=== PATIENT | female | born 1950 | race Caucasian/White ===

== ENCOUNTER 2017-11-23 13:00 | Outpatient (RCR) | payer MEDICARE, OTHER, SELFPAY ==
--- NOTE | 2017-11-10 12:15 | HP.PTEVAL_ITS ---
Patient's Visit Information ROCIO JIMENEZ is a 67 year old F referred to Physical Therapy by Toma Quintana DO with a diagnosis of Right Shoulder Pain. Date of Evaluation: 11/10/17 Physical Therapist: Carol Ann Min - Visit Plan Frequency: 2x /Week Duration: 3 Weeks Plan: Focus on ROM and scap s/s - Subjective Subjective: Patient reports that in Sept initial injury went into [place] and felt a pop. Went chiropractor who manipulated and did stim/ice, laser and ultrasound which did not make it better. Then saw Dr. Butler- manipulated the shoulder 3 weeks ago and its the best she has been. Saw Dr. Quintana and was sent to PT. Describes pain as achy all the time but has sharp pain with abduction and catching. Has not been to yoga since July. Worst: 02/15 Best: 11/17. Agg: movement, lifting grand daughter. Best: Motrin, Enyzyme. Pain is along shoulder blade and wraps into the bicipital groove. No injections. 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 Sleep: disturbed- cant sleep on it. Very active person but wants to get back to her normal stuff. Work: retired- but cares for her grand daughter a lot. Right hand dominate. PMHx: HTN, high cholesterol, cleaned out carotid artery (2 years ago). Meds: HTN, cholestrol, lotrinex, premarin - Objective Posture: good throughout. Palpation: tender along upper trap, levator, SCM, scalenes, bicipital groove, supraspinatus, infraspinatus and along the medial border of the scapula. ROM: elbow/wrist/hand- WNL. AROM: flexion- 95 degrees, abd: 85 degrees, IR: to bra, ER: 50 degrees, PROM: flexion- 165 degrees, Abd: 170 degrees. Strength: Scap: fair minus winging scapula, Shoulder: 4/5 throughout available range, Elbow/Wrist/hand: WNL. Special Test: Empty Can: positive, Impingment: positive - Goals Goal 1:: Patient will be I with HEP and progression Goal Time Frame: 4-6 Weeks Goal 2:: Patient will demo full AROM of the shoulder Goal Time Frame: 4-6 Weeks Goal 3:: Patient will demo good scapular s/s Goal Time Frame: 4-6 Weeks Goal 4:: Patient will report 0/10 pain for 1 week Goal Time Frame: 4-6 Weeks - Rehabilitation Potential Physical Therapy Diagnosis: Patient presents with hypomobility- she has decreased ROM, strength and muscular endurance leading to poor posture and increased pain with ADL's. Rehabilitation Potential: Fair - Anticipated Interventions Patient/Client Instruction: Educate patient on: Benefits of Fitness Program For the Purpose of:: To improve performance and independence with ADL's Therapeutic Exercise to Include: Strength training, Endurance training, Body mechanics, Postural training, Passive ROM, Active ROM, Scapular Strength/ Stabilization For the Purpose of:: To improve muscle performance and motor function Manual Therapy Techniques to Include: Mobilization, Passive ROM, Functional dry needling, Soft tissue mobilization For the Purpose of:: To improve nutrient delivery to tissue TENS: Yes Cryotherapy (ice pack, ice massage): Yes Thermo therapy (hot pack): Yes Ultrasound (thermal/non thermal): Yes For the Purpose of:: To decrease pain Thank you for the opportunity to evaluate your patient. For Medicare and Medicare HMO plans, please review the plan of care and approve it. It will need to be FAXED BACK to us at [phone] for Medicare purposes. Please let me know if there are questions or concerns regarding this plan of care. Physician Signature: Date:
--- NOTE | 2018-02-14 10:37 | HP.PTDCNRP_ITS ---
HP - Discharge Summary (1) - Patient Information ROCIO JIMENEZ was seen in my office for initial evaluation on 11/10/17. The following Plan of Care was established for this patient: Initial Frequency: 2x /Week Initial Duration: 3 Weeks - Anticipated Interventions Patient/Client Instruction: Educate patient on: Benefits of Fitness Program For the Purpose of:: To improve performance and independence with ADL's Therapeutic Exercise to Include: Strength training, Endurance training, Body mechanics, Postural training, Passive ROM, Active ROM, Scapular Strength/ Stabilization For the Purpose of:: To improve muscle performance and motor function Manual Therapy Techniques to Include: Mobilization, Passive ROM, Functional dry needling, Soft tissue mobilization For the Purpose of:: To improve nutrient delivery to tissue TENS: Yes Cryotherapy (ice pack, ice massage): Yes Thermo therapy (hot pack): Yes Ultrasound (thermal/non thermal): Yes For the Purpose of:: To decrease pain This patient was last seen in our office . Pertinent comments regarding their Physical therapy will appear below: Patient has returned to normal activities and is appropriate to be d/c at this time. At this point I will be discontinuing this patient from physical therapy. I would be happy to see this patient again in the future if found appropriate by the physician. Thank you! Carol Ann Min
== END 2017-11-23 19:00 | disposition home or self-care (01) ==
LOC: PT 13:00
PROVIDERS: Family Provider Internal Medicine; PCP Internal Medicine; Visit Provider Internal Medicine
DX: M25.511 Pain in right shoulder (principal)
CPT/HCPCS: 97110; 97161

== ENCOUNTER → 2018-03-16 09:11 | Outpatient (CLI) | payer MEDICARE, OTHER, SELFPAY ==
--- NOTE | 2018-03-16 09:16 | US_ITS ---
STUDY: ABDOMINAL ULTRASOUND -left UPPER QUADRANT REASON FOR VISIT: Female, 67 years old. Elevated platelets TECHNIQUE: Ultrasound evaluation of the right upper quadrant was performed with real-time and static hardwick-scale imaging. TECHNICAL QUALITY: Adequate. COMPARISON: None. FINDINGS: Spleen: The spleen measures 8.5 cm x 3.5 cm x 3.1 cm. It is unremarkable. Left Kidney: Normal size of the left kidney. The left kidney measures 8.9 cm x 4.2 cm by 5.2 cm. Normal renal cortex. The left cortex measures 1.4 cm. There is no demonstrated renal mass or cyst. There is no left hydronephrosis. US/Spleen IMPRESSION: Normal left upper quadrant ultrasound examination. Electronically Signed: Bruce Contreras MD at 15:47 EDT Tel [phone], Service support ,
--- NOTE | 2018-03-16 09:48 | CDU_ITS ---
Reason For Study: Carotid stenosis - RT CEA Rt. Velocities/BP Lt. Velocities/BP Prox CCA 69.8/18.2 cm/sec. Prox CCA 81.5/25.2 cm/sec. Mid CCA 78.6/22.9 cm/sec. Mid CCA 89.7/27.0 cm/sec. Dist CCA 63.3/20.5 cm/sec. Dist CCA 59.8/21.1 cm/sec. Prox ICA 80.3/26.4 cm/sec. Prox ICA 62.1/21.1 cm/sec. Mid ICA 90.9/34.6 cm/sec. Mid ICA 86.2/32.8 cm/sec. Dist ICA 104.0/36.9 cm/sec. Dist ICA 79.5/28.1 cm/sec. Rt. ICA/CCA = 1.3. Lt. ICA/CCA = .96. Prox ECA 118.0/18.2 cm/sec. Prox ECA 47.5/10.6 cm/sec. Rt. Vert. 46.9/15.2 cm/sec. Lt. Vert. 50.4/16.4 cm/sec. Right Extracranial There is intimal thickening but no significant atherosclerotic plaque noted in the right common carotid artery. There is heterogeneous, smooth atherosclerotic plaque noted in the right internal carotid artery. There is intimal thickening but no significant atherosclerotic plaque noted in the right external carotid artery. Antegrade flow is noted in the right vertebral artery. Left Extracranial There is intimal thickening but no significant atherosclerotic plaque noted in the left common carotid artery. There is heterogeneous, irregular atherosclerotic plaque noted in the left internal carotid artery. There is homogeneous, smooth atherosclerotic plaque noted in the left external carotid artery. Antegrade flow is noted in the left vertebral artery. Procedure Carotid Duplex [id number]. Exam performed in department. Interpretation Summary Mild (<50%) stenosis right extracranial internal carotid. Mild (<50%) stenosis left extracranial internal carotid. Flow within the vertebral arteries is antegrade bilaterally. Ordering Physician: Toma Quintana Referring Physician: Toma Quintana Performed By: Idania Murdock RVT
== END ==
PROVIDERS: Family Provider Internal Medicine; PCP Internal Medicine; Visit Provider Internal Medicine
DX: R79.89 Other specified abnormal findings of blood chemistry (principal); I65.23 Occlusion and stenosis of bilateral carotid arteries
CPT/HCPCS: 76705; 93880

== ENCOUNTER → 2018-09-22 13:00 | Outpatient (CLI) | payer SELFPAY ==
--- NOTE | 2018-09-22 13:06 | CT_ITS ---
STUDY: CT CHEST WITHOUT CONTRAST REASON FOR EXAM: Female, 68 years old. High cholesterol RADIATION DOSAGE (If Supplied By Facility): CTDIvol = ( 12.19 ) mGy, DLP = ( 268.17 ) mGycm TECHNIQUE: Transaxial imaging was performed without the administration of intravenous contrast material. Individualized dose optimization techniques were used for this CT. COMPARISON: None. FINDINGS: TRACHEA, THYROID, ESOPHAGUS: No tracheomalacia,stricture or wall thickening. Thyroid and esophagus are normal CARDIOVASCULAR SYSTEM: The thoracic aorta is grossly within normal limits. The pulmonary trunk and the left pulmonary arteries are also grossly within normal limits. The heart is not enlarged. Mild pericardial thickening. No coronary artery calcifications There are no vascular developmental anomalies. ALBERTO AND LYMPH NODES: No hilar masses and no mediastinal, hilar, axillary or supraclavicular adenopathy LUNGS, LOW-ATTENUATION: No traction bronchiectasis, honeycombing,emphysema, lung cysts or cavitations LUNGS, HIGH ATTENUATION: No nodules/masses, ground glass opacities/consolidations or increased interstitial markings LUNGS, MOSAIC/CRAZY PAVING: Not evident PLEURA AND CHEST WALL: No plural effusions, pneumothoraces,rib fractures or any osteolytic/osteoblastic changes . The soft tissue chest wall including the breasts are normal UPPER ABDOMEN: Unremarkable CT/Limited Chest CT w/CCTA IMPRESSION: Mild pericardial thickening. No coronary artery calcification. No acute findings in the lungs Electronically Signed: David Horton MD at 3:04 EST Tel , Service support ,
[2018-09-22 13:29] VITALS: BP 137/60; PULSE 59; RESP 14; O2SAT 99; BMI 21.6
--- NOTE | 2018-09-23 08:16 | CA.SCORE ---
Calcium Scoring Date of Study:: 09/22/18 Coronary Calcium Scoring: Coronary calcium scoring. High-resolution computed tomographic imaging of the chest was performed on 09/22/2018 with particular attention paid to the coronary arteries. Images from the examination were analyzed for the presence and extent of coronary artery calcification using the coronary calcification quantification software. The patient tolerated the procedure well and there were no complications. The results of the coronary calcification analysis are noted as follows. Left main coronary artery score 0. Left anterior descending artery score 0. Left circumflex artery score 0. Right coronary artery score 0. Total calcium score is 0. The above is indicative of minimal to no significant atherosclerotic cardiovascular disease.
== END ==
PROVIDERS: Family Provider Internal Medicine; PCP Internal Medicine; Referring Provider Internal Medicine; Visit Provider Internal Medicine
DX: I65.29 Occlusion and stenosis of unspecified carotid artery (principal); E78.5 Hyperlipidemia, unspecified
CPT/HCPCS: 75571; 76380

== ENCOUNTER → 2018-12-22 12:49 | Outpatient (CLI) | payer MEDICARE, OTHER, SELFPAY ==
[2018-09-22 13:29] VITALS: BMI 21.6
--- NOTE | 2018-12-22 12:52 | ECHOD_ITS ---
Reason For Study: Pericardial Disease Procedure This was a 2D Doppler, Color Flow transthoracic echocardiogram. Exam performed in department. Left Ventricle Normal LV size. Left ventricular systolic function is normal. The estimated ejection fraction is 60 %. Stage 1 diastolic dysfunction. No regional wall motion abnormalities noted. Right Ventricle Normal RV size. Normal systolic function. Atria Normal left atrium. Normal right atrium. Mitral Valve Normal mitral valve. Mild (1+) eccentric mitral valve insufficiency. Tricuspid Valve Normal tricuspid valve. Mild tricuspid valve insufficiency. Aortic Valve Trisinus/trileaflet aortic valve. Pulmonic Valve Normal pulmonic valve. Great Vessels Normal aortic root. The pulmonary artery is normal size. Normal inferior vena cava. Pericardium/Pleural No pericardial effusion. MMode/2D Measurements & Calculations LVIDd: 4.1 cm IVSd: 0.79 cm Ao root diam: 3.4 cm LVIDs: 2.3 cm LVPWd: 0.76 cm LA dimension: 2.9 cm RVDd: 3.2 cm FS: 44.9 % LAV(MOD-bp): 37.2 ml LA A4 area: 14.4 cm2 RA A4 area: 14.2 cm2 LAV(MOD-bp) Indexed: 22.6 ml/m2 LAV(MOD-sp2): 40.4 ml LAV(MOD-sp4): 32.0 ml Time Measurements MV dec time: 0.26 sec Doppler Measurements & Calculations MV E max osvaldo: 93.3 cm/sec Lat Peak E' Osvaldo: 8.8 cm/sec Med Peak E' Osvaldo: 10.1 cm/sec MV A max osvaldo: 80.3 cm/sec E/E' lat: 10.6 E/E' med: 9.2 MV E/A: 1.2 MV V2 max: 128.1 cm/sec MV P1/2t max osvaldo: 128.8 cm/sec Ao V2 max: 142.5 cm/sec MV max P.6 mmHg MV P1/2t: 68.3 msec Ao max P.1 mmHg MV V2 mean: 68.5 cm/sec MV dec slope: 552.4 cm/sec2 MV mean P.2 mmHg MVA(P1/2t): 3.2 cm2 MV V2 VTI: 33.3 cm LV V1 max: 118.6 cm/sec MR max osvaldo: 542.8 cm/sec PA V2 max: 108.7 cm/sec LV V1 max P.6 mmHg MR max P.8 mmHg MR mean osvaldo: 391.0 cm/sec MR mean P.4 mmHg MR VTI: 202.4 cm TR max osvaldo: 241.3 cm/sec TR max P.4 mmHg Interpretation Summary Normal LV size. Left ventricular systolic function is normal. The estimated ejection fraction is 60 %. Stage 1 diastolic dysfunction. Mild (1+) eccentric mitral valve insufficiency. Mild tricuspid valve insufficiency. Ordering Physician: Toma Quintana Referring Physician: Toma Quintana Performed By: Mykel Rivera RCS
== END ==
PROVIDERS: Family Provider Internal Medicine; PCP Internal Medicine; Referring Provider Internal Medicine; Visit Provider Internal Medicine
DX: I34.1 Nonrheumatic mitral (valve) prolapse (principal); I31.9 Disease of pericardium, unspecified; Z12.31 Encounter for screening mammogram for malignant neoplasm of breast
CPT/HCPCS: 93306

== ENCOUNTER → 2019-01-20 07:31 | Outpatient (CLI) | payer MEDICARE, OTHER, SELFPAY ==
[2018-09-22 13:29] VITALS: BMI 21.6
--- NOTE | 2019-01-20 06:50 | BI_ITS ---
MAMMOGRAPHY - BILATERAL SCREENING REASON FOR EXAM: Female, 68 years old. Routine annual screening examination. PERTINENT HISTORY: Non-contributory. TECHNIQUE: Digital bilateral breast carina (3D mammographic acquisition) in the CC and MLO projections. 2-D mediolateral oblique (MLO) and craniocaudad (CC) views of both breasts were obtained. CAD: Full Field Digital Mammography with Computer Added Detection was performed. COMPARISON: Comparison is made with prior study dated November 18, 2017 and October 07, 2016. FINDINGS: Breast Composition: The breasts are extremely dense, which lowers the sensitivity of mammography. There are no dominant masses or suspicious calcifications. No other significant abnormalities are identified. There has been no significant change since the prior study. BI/SCREENING MAMM (CAD), BILAT IMPRESSION: Stable bilateral screening mammogram. Yearly follow-up mammogram recommended. (A) ASSESSMENT CATEGORY: BIRADS Category 1: Negative. A letter regarding these results will be sent to the patient by the facility within 30 days. Approximately 10% of breast cancers are not detected by mammography. A normal mammogram should not delay biopsy of a clinically suspicious abnormality. [id number] Electronically Signed: Bruce Contreras, at 9:23 EDT , Service support ,
== END ==
PROVIDERS: Family Provider Internal Medicine; PCP Internal Medicine; Referring Provider Internal Medicine; Visit Provider Internal Medicine
DX: Z12.31 Encounter for screening mammogram for malignant neoplasm of breast (principal)
CPT/HCPCS: 77063; 77067

== ENCOUNTER → 2019-03-06 09:46 | Outpatient (CLI) | payer MEDICARE, OTHER, SELFPAY ==
[2018-09-22 13:29] VITALS: BMI 21.6
--- NOTE | 2019-03-06 10:41 | CDU_ITS ---
Reason For Study: carotid stenosis Rt. Velocities/BP Lt. Velocities/BP Prox CCA 68.2/16.0 cm/sec. Prox CCA 69.5/20.0 cm/sec. Mid CCA 69.5/21.3 cm/sec. Mid CCA 70.8/20.0 cm/sec. Dist CCA 60.4/18.6 cm/sec. Dist CCA 56.5/18.6 cm/sec. Prox ICA 81.2/6.9 cm/sec. Prox ICA 59.1/17.3 cm/sec. Mid ICA 87.8/34.3 cm/sec. Mid ICA 87.8/31.7 cm/sec. Dist ICA 100.8/35.6 cm/sec. Dist ICA 96.9/35.6 cm/sec. Rt. ICA/CCA = 1.5. Lt. ICA/CCA = 1.4. Prox ECA 81.2/12.1 cm/sec. Prox ECA 38.2/8.2 cm/sec. Rt. Vert. 39.5/13.4 cm/sec. Lt. Vert. 46.0/17.3 cm/sec. Right Extracranial There is intimal thickening but no significant atherosclerotic plaque noted in the right common carotid artery. There is heterogeneous, irregular atherosclerotic plaque noted in the right internal carotid artery. There is intimal thickening but no significant atherosclerotic plaque noted in the right external carotid artery. Antegrade flow is noted in the right vertebral artery. Left Extracranial There is intimal thickening but no significant atherosclerotic plaque noted in the left common carotid artery. There is heterogeneous, irregular atherosclerotic plaque noted in the left internal carotid artery. There is intimal thickening but no significant atherosclerotic plaque noted in the left external carotid artery. Antegrade flow is noted in the left vertebral artery. Procedure Carotid Duplex [id number]. The exam was diagnostic. Exam performed in department. Interpretation Summary Mild (<50%) stenosis right extracranial internal carotid. Mild (<50%) stenosis left extracranial internal carotid. Flow within the vertebral arteries is antegrade bilaterally. Ordering Physician: Toma Quintana Performed By: Emiliano Sheikh RVT
== END ==
PROVIDERS: Family Provider Internal Medicine; PCP Internal Medicine; Referring Provider Internal Medicine; Visit Provider Internal Medicine
DX: I65.23 Occlusion and stenosis of bilateral carotid arteries (principal)
CPT/HCPCS: 93880

== ENCOUNTER → 2020-03-07 10:51 | Outpatient (CLI) | payer MEDICARE, OTHER, SELFPAY ==
[2018-09-22 13:29] VITALS: BMI 21.6
--- NOTE | 2020-03-07 10:55 | CDU_ITS ---
Reason For Study: carotid stenosis Rt. Velocities/BP Lt. Velocities/BP Prox CCA 76.0/20.0 cm/sec. Prox CCA 89.3/25.6 cm/sec. Mid CCA 69.5/18.6 cm/sec. Mid CCA 75.0/20.1 cm/sec. Dist CCA 57.8/14.7 cm/sec. Dist CCA 58.5/16.8 cm/sec. Prox ICA 122.9/20.6 cm/sec. Prox ICA 48.5/10.7 cm/sec. Mid ICA 71.6/22.5 cm/sec. Mid ICA 65.5/23.9 cm/sec. Dist ICA 79.0/29.8 cm/sec. Dist ICA 113.3/39.7 cm/sec. Rt. ICA/CCA = 1.8. Lt. ICA/CCA = 1.5. Prox ECA 99.5/14.7 cm/sec. Prox ECA 47.5/10.7 cm/sec. Rt. Vert. 39.9/12.4 cm/sec. Lt. Vert. 55.6/18.8 cm/sec. Right Extracranial There is intimal thickening but no significant atherosclerotic plaque noted in the right common carotid artery. There is heterogeneous, irregular atherosclerotic plaque noted in the right internal carotid artery. There is intimal thickening but no significant atherosclerotic plaque noted in the right external carotid artery. Antegrade flow is noted in the right vertebral artery. Left Extracranial There is intimal thickening but no significant atherosclerotic plaque noted in the left common carotid artery. There is heterogeneous, irregular atherosclerotic plaque noted in the left internal carotid artery. There is intimal thickening but no significant atherosclerotic plaque noted in the left external carotid artery. Antegrade flow is noted in the left vertebral artery. Procedure Carotid Duplex [id number]. The exam was diagnostic. Exam performed in department. Interpretation Summary Mild (<50%) stenosis right extracranial internal carotid. Mild (<50%) stenosis left extracranial internal carotid. Flow within the vertebral arteries is antegrade bilaterally. Ordering Physician: Toma Quintana Performed By: Emiliano Sheikh RVT
== END ==
PROVIDERS: PCP Internal Medicine; Referring Provider Internal Medicine; Visit Provider Internal Medicine
DX: I65.23 Occlusion and stenosis of bilateral carotid arteries (principal)
CPT/HCPCS: 93880

== ENCOUNTER → 2020-03-28 12:25 | Outpatient (CLI) | payer MEDICARE, OTHER, SELFPAY ==
[2018-09-22 13:29] VITALS: BMI 21.6
--- NOTE | 2020-03-28 12:28 | BI_ITS ---
MAMMOGRAPHY - BILATERAL SCREENING REASON FOR EXAM: Female, 69 years old. Routine annual screening examination. PERTINENT HISTORY: Non-contributory. TECHNIQUE: Digital bilateral breast red (3D mammographic acquisition) in the CC and MLO projections. 2-D mediolateral oblique (MLO) and craniocaudad (CC) views of both breasts were obtained. CAD: Full Field Digital Mammography with Computer Added Detection was performed. COMPARISON: Comparison is made with prior study dated January 20, 2019 and November 18, 2017. FINDINGS: Breast Composition: The breasts are extremely dense, which lowers the sensitivity of mammography. There are no dominant masses or suspicious calcifications. No other significant abnormalities are identified. There has been no significant change since the prior study. BI/SCREEN MAMM (CAD) W/RED BILAT IMPRESSION: Stable bilateral screening mammogram. Yearly follow-up mammogram recommended. (A) ASSESSMENT CATEGORY: BIRADS Category 1: Negative. A letter regarding these results will be sent to the patient by the facility within 30 days. Approximately 10% of breast cancers are not detected by mammography. A normal mammogram should not delay biopsy of a clinically suspicious abnormality. [id number] Electronically Signed: Bruce Contreras, at 10:39 EDT , Service support ,
--- NOTE | 2020-03-28 12:29 | BD_ITS ---
STUDY: DUAL ENERGY X-RAY ABSORPTIOMETRY / DXA REASON FOR EXAM: Female, 69 years old. RET[employer]- SURGICAL AT 49 YRS OLD -- ON HRT -- TAKES MULTIVITMAIN -- DOES MODERATE AMOUNT OF EXERCISE -- NO GERARDO TECHNIQUE: Bone Mineral Density (BMD) measurements of lumbar spine and bilateral hips were obtained. COMPARISON: Comparison is made with prior examination dated November 18, 2017. FINDINGS: Lumbar Spine (L1-L4): g/cm2 (1.242) / T-score (0.6) / Z-score (2.3) Findings are suggestive of normal bone density with a low fracture risk. Left Femur Total: g/cm2 (0.878) / T-score (-1.0) / Z-score (0.4) Left Femoral Neck: g/cm2 (0.843) / T-score (-1.4) / Z-score (0.2) Right Femur Total: g/cm2 (0.890) / T-score (-0.9) / Z-score (0.5) Right Femoral Neck: g/cm2 (0.852) / T-score (-1.3) / Z-score (0.3) The T-Scores on the most recent prior examination were: Lumbar Spine (L1-L4): There has been improvement of bone density since the previous examination. Left Femur Total: which represents a worsening of 1.2%. Right Femur Total: which represents a worsening of 0.3%. BD/Dexa Bone Density Study IMPRESSION: The patient is considered osteopenic as outlined below according to World Silv[employer] Organization (WHO) criteria with a low fracture risk. There has been worsening of bone density since the previous examination. Reference Information: The T-score is the number of standard deviations above or below the standard which is normal for young adults at their peak bone mineral density. The World Health Organization (WHO) interprets the T-scores as follows: Above -1 Normal bone density Between -1 and -2.5 Osteopenia Equal to / or below -2.5 Osteoporosis As a practical clinical guideline, osteopenia may be graded as follows: Mild -1 through -1.5 Moderate -1.6 through -2.0 Severe -2.1 through -2.4 The Z-score is the number of standard deviations above or below age-matched controls. A Z-score of less than -1.5 would be considered abnormal. References: 1. NIH Osteoporosis and Related Bone Diseases http://www.osteo.org 2. International Society for Clinical Densitometry http://www.iscd.org 3. National Osteoporosis Foundation http://www.nof.org Electronically Signed: Bruce Contreras, at 10:46 EDT , Service support ,
== END ==
PROVIDERS: Family Provider Internal Medicine; PCP Internal Medicine; Referring Provider Internal Medicine; Visit Provider Internal Medicine
DX: Z12.31 Encounter for screening mammogram for malignant neoplasm of breast (principal); Z78.0 Asymptomatic menopausal state
CPT/HCPCS: 77063; 77067; 77080

== ENCOUNTER → 2020-10-18 16:44 | Outpatient (CLI) | payer MEDICARE, OTHER, SELFPAY ==
[2018-09-22 13:29] VITALS: BMI 21.6
[2020-10-18 17:38] LABS: Absolute Lymphocyte Count 1.06 X10^3/uL (0.83-4.51); Absolute Neutrophil Count 2.2 X10^3/uL (2.0-7.7); Basophil# 0.01 X10^3/uL; Basophil% 0.3 % (0-1); Eosinophil# 0.03 X10^3/uL; Eosinophils% 0.8 % (0-5); Hematocrit 43.8 % (37-47); Hemoglobin 14.4 g/dL (12.0-15.0); Lymphocyte # 1.06 X10^3/ul (4.0); Mean Corp Hgb Conc 32.9 g/dL (32-36); Mean Corpuscular Hgb 31.4 pg (27.0-32.0); Mean Corpuscular Volume 95.4 fL (81-99); Monocyte# 0.61 X10^3/uL; Monocyte% 15.6 % (0-10); NRBC Flagged by Analyzer 0 % (0-5); Neutrophil # 2.21 X10^3/uL (2.7-7.7); Neutrophil % 56.3 % (47-70); Platelet Count 361 K/mm3 (150-450); RBC Distribution Width CV 13.2 % (11.6-14.6); RBC Distribution Width SD 46.5 fl (35.1-43.9); Red Blood Count 4.59 M/mm3 (4.2-5.4); White Blood Count 3.9 K/mm3 (4.4-11.0)
--- NOTE | 2020-10-18 17:39 | RAD_ITS ---
STUDY: X-RAY CHEST REASON FOR EXAM: Female, 70 years old. COUGH TECHNIQUE: PA and lateral COMPARISON: 03/09/2014 FINDINGS: Lungs are mildly hyperinflated but clear. There is minor pleural thickening in the pulmonary apices.. No pleural effusion or pneumothorax.. Normal size heart. Normal mediastinum and candy. Normal visualized pulmonary arteries. Normal visualized aortic arch and descending thoracic aorta. Normal visualized thoracic spine. Normal visualized ribs, clavicles, and shoulders. There is no demonstrated abnormality of the visualized soft tissue structures of the upper abdomen. RAD/Chest PA and Lateral IMPRESSION: Mild hyperinflation. No acute disease. Electronically Signed: Iraj Jimenez MD at 18:37 EST , Service support ,
[2020-10-18 18:08] LABS: ALB/GLOB Ratio 1.1 RATIO (0.9-2.4); AST(SGOT) 29 U/L (15-37); Alanine Aminotransfer ALT/SGPT 30 U/L (13-56); Albumin, Serum 3.9 g/dL (3.2-5.0); Alkaline Phosphatase 76 U/L (45-117); Anion Gap 6 (5-15); BUN 11 mg/dL (7-18); BUN/Creat Ratio 14.8 RATIO (10-20); Calcium,Total 9.1 mg/dL (8.5-10.1); Chloride 102 mmol/L (98-107); Creatinine, Serum 0.74 mg/dL (0.55-1.02); EST Glomerular Filtration Rate 82 mL/min (>60); Est Glom Filt Rate - Afr Amer 99 mL/min (>60); Globulin 3.6 g/dL (2.2-4.2); Glucose 92 mg/dL (74-106); Potassium 3.8 mmol/L (3.5-5.1); Protein, Total 7.5 g/dL (6.4-8.2); Sodium Level 136 mmol/L (136-145)
[2020-10-18 18:12] LABS: D-Dimer Quantitative (DVT/PE) 0.59 FEU/ug/m (0.27-0.49)
== END ==
PROVIDERS: PCP Internal Medicine; Visit Provider Internal Medicine
DX: R07.9 Chest pain, unspecified (principal); M54.5 Low back pain
CPT/HCPCS: 36415; 71046; 80053; 84484; 85025; 85379; 87086

== ENCOUNTER 2020-11-18 11:37 | Emergency (ER) | payer MEDICARE, OTHER, SELFPAY ==
[2018-09-22 13:29] VITALS: BMI 21.6
[2020-11-18 11:38] VITALS: BP 97/81; PULSE 87; RESP 17; TEMP 36.2; O2SAT 98; BMI 20.7
--- NOTE | 2020-11-18 12:03 | MRI_ITS ---
STUDY: MRI THORACIC SPINE WITH AND WITHOUT CONTRAST REASON FOR EXAM: Female, 70 years old. MID BACK PAIN -- pain across mid thoracic x 5 days, hx covid 10/2020, tingling all extremities TECHNIQUE: dotarem 11ml iv was administered for the contrast portion of the examination. COMPARISON: Radiograph thoracic spine 11/15/2020 FINDINGS: Normal kyphosis of the thoracic spine. There is no substantial scoliosis. T1-2, T2-3, T3-4, T4-5, T5-6, T6-7, T7-8, T8-9, T9-10, T10-11, T11-12: Normal endplates. Normal disc hydration, heights and morphology of the corresponding intervertebral discs. Normal central canal and intervertebral neural foramina at the corresponding levels. Normal visualized thoracic cord. Normal conus medullaris that terminates at the L1 level. The soft tissue structures are unremarkable. There is no enhancing abnormality. MRI/Spine Thoracic W/WO Contrast IMPRESSION: Normal unenhanced and enhanced MRI examination of the thoracic spine. Electronically Signed: García Restrepo MD at 20:56 EST , Service support ,
--- NOTE | 2020-11-18 12:03 | MRI_ITS ---
STUDY: MRI CERVICAL SPINE WITH AND WITHOUT CONTRAST REASON FOR EXAM: Female, 70 years old. MID BACK PAIN -- pain across mid thoracic x 5 days, hx covid 10/2020, tingling all extremities TECHNIQUE: Standardized fat and water weighted pulse sequences were obtained in the sagittal and axial following administration of dotarem 11 ml iv. COMPARISON: None FINDINGS: Normal foramen magnum and brainstem-cervical cord junction. Normal craniovertebral junction. Normal anterior atlantoaxial articulation. Normal odontoid process. Normal cervical lordosis. Normal vertebral bodies and posterior osseous elements. C2-3: Normal endplates. Normal disc height, signal and morphology. Normal central canal and intervertebral neural foramina. C3-4: Normal endplates. Normal disc height, signal and morphology. Normal central canal and intervertebral neural foramina. C4-5: Normal endplates. Normal disc height, signal and morphology. Normal central canal and intervertebral neural foramina. C5-6: Normal endplates. Normal disc height, signal and morphology. Normal central canal and intervertebral neural foramina. C6-7: Normal endplates. Normal disc height, signal and morphology. Normal central canal and intervertebral neural foramina. C7-T1: Normal endplates. Normal disc height, signal and morphology. Normal central canal and intervertebral neural foramina. 8 mm nerve sleeve root cyst on the right at T1-T2. Normal cervical cord. Normal visualized soft tissue structures. MRI/Spine Cervical W/WO Contrast IMPRESSION: Normal unenhanced and enhanced MR examination of the cervical spine. Electronically Signed: García Restrepo MD at 21:01 EST , Service support ,
[2020-11-18 12:33] LABS: Erythrocyte Sedimentation Rate 9 mm/hr (0-30)
[2020-11-18 12:37] LABS: Absolute Lymphocyte Count 1.75 X10^3/uL (0.83-4.51); Absolute Neutrophil Count 2.9 X10^3/uL (2.0-7.7); Anion Gap 6 (5-15); BUN 9 mg/dL (7-18); Basophil# 0.01 X10^3/uL; Basophil% 0.2 % (0-1); CRP < 2.90 mg/L (0.0-3.0); Calcium,Total 9.5 mg/dL (8.5-10.1); Chloride 104 mmol/L (98-107); Creatinine, Serum 0.69 mg/dL (0.55-1.02); EST Glomerular Filtration Rate 89 mL/min (>60); Eosinophil# 0.05 X10^3/uL; Est Glom Filt Rate - Afr Amer 108 mL/min (>60); Estimated Creatinine Clearance 47.52 ml/min; Glucose 100 mg/dL (74-106); Hematocrit 41.5 % (37-47); Hemoglobin 14.3 g/dL (12.0-15.0); Lymphocyte # 1.75 X10^3/ul (4.0); Lymphocyte % 34.4 % (19-41); Mean Corp Hgb Conc 34.5 g/dL (32-36); Mean Corpuscular Hgb 32.1 pg (27.0-32.0); Mean Platelet Vol. 8.7 fl (6.2-12.0); Monocyte# 0.34 X10^3/uL; Monocyte% 6.7 % (0-10); NRBC Flagged by Analyzer 0 % (0-5); Neutrophil # 2.93 X10^3/uL (2.7-7.7); Neutrophil % 57.5 % (47-70); Platelet Count 409 K/mm3 (150-450); Potassium 4.2 mmol/L (3.5-5.1); RBC Distribution Width CV 12.9 % (11.6-14.6); RBC Distribution Width SD 43.4 fl (35.1-43.9); Red Blood Count 4.46 M/mm3 (4.2-5.4); Sodium Level 138 mmol/L (136-145); White Blood Count 5.1 K/mm3 (4.4-11.0)
[2020-11-18] MEDS: Ondansetron 4 MG/2 ML Vial IV ×2 (13:08→15:59)
[2020-11-18] MEDS: Morphine 4 MG/ML Syringe IV ×3 (13:08→18:00)
--- NOTE | 2020-11-18 13:35 | ED.VIS.BACK ---
History of Present Illness Narrative: Patient presenting per recommendation of primary care for back pain. Patient states that she had an atraumatic onset of back pain. Tender mid thoracic back, is a continuous type pain that she states feels as if someone sliced her back. Patient states that preceding this by about 2 or 3 days she noticed some tingling in her upper extremities bilaterally. Patient states that she noticed that while playing tennis, and then did not notice it but then had reemergence of those symptoms on Wednesday when she started to develop this back pain. Back pain has been increasing in severity, is worse with movement has not been alleviated by Vicodin. Patient also states that she has some tingling in her toes. She denies any weakness. She denies any bowel or bladder incontinence. Patient has been losing weight, but she attributes that to the fact that she recently recovered from coronavirus. She has not had any repeat fever episodes. Patient denies any recent history of injections, fevers, or IV drug abuse. Patient's primary care physician was concerned about the possibility of development of transverse myelitis versus other spine pathology and felt the patient required MRI imaging and sent the patient to the emergency department for further evaluation. <Kurt Coker - Last Filed: 11/18/20 16:04> <Enoc García - Last Filed: 11/18/20 21:21> Chief Complaint: Back Past Medical History Prior records reviewed: Yes Past Medical History: - - No Significant med hx Lives: With Family Smoking Status: Unknown if ever smoked Alcohol: None Drugs: None <Kurt Coker - Last Filed: 11/18/20 16:04> <Eonc García - Last Filed: 11/18/20 21:21> - Allergies and Home Meds Allergies/Adverse Reactions: Allergies No Known Allergies Allergy (Verified 11/18/20 11:37) Primary Care Physician: Toma Quintana DO [Primary Care Provider] - Review of Systems All systems negative except as indicated General: Denies: Chills, Fever, Sweats Eyes: Denies: Visual changes - bilaterally, Diplopia ENT: Denies: Rhinorrhea, Sore throat Cardiovascular: Denies: Chest pain, Palpitations Respiratory: Denies: Dyspnea, Cough, Dyspnea on exertion Gastrointestinal: Denies: Abdominal pain, Nausea, Vomiting, Diarrhea, Melena, Hematochezia Genitourinary: Denies: Dysuria, Hematuria, Frequency Musculoskeletal: Reports: Back pain Skin: Denies: Rash, Wounds Neurological: Reports: Parasthesia <Kurt Coker - Last Filed: 11/18/20 16:04> Physical Exam Vital Signs/Narrative: Vital Signs Temp Pulse Resp BP Pulse Ox 11/18/20 11:38 97.1 F L 87 17 97/81 H 98 Inital Vital Signs reviewed: Yes General: Well nourished, Well developed Head: Normocephalic, Atraumatic Eyes: Perrl, EOMI ENT: Moist mucous membranes, No rhinorrhea Neck: Supple, Nontender Cardiovascular: Regular rate, Regular rhythm, No murmurs Respiratory: No distress, CTA bilaterally, Chest nontender Abdomen: Soft, Nontender, Nondistended, Normal bowel sounds Back: Normal Inspection, Nontender Extremeties: Nontender, No edema Skin: Normal color, No rash Neuro: Alert, Oriented, Normal Strength, Normal Sensation, Normal DTR, Normal Gait, - - Patient complains of dysesthesia in the fingers and toes, has a completely normal motor and sensory exam normal reflexes of the upper and lower extremities, no objective numbness. Psychological: Normal affect <SheelaKurt - Last Filed: 11/18/20 16:04> Vital Signs/Narrative: Vital Signs Pulse Resp BP Pulse Ox 11/18/20 20:09 73 16 159/92 H 98 <Enoc García - Last Filed: 11/18/20 21:21> Diagnostic/Tx/Re-eval Laboratory Data 11/18/20 11/18/20 12:15 12:15 WBC 5.1 RBC 4.46 Hgb 14.3 Hct 41.5 MCV 93.0 MCH 32.1 H MCHC 34.5 RDW Std Deviation 43.4 RDW Coeff of Yong 12.9 Plt Count 409 MPV 8.7 Immature Gran % (Auto) 0.200 Neut % (Auto) 57.5 Lymph % (Auto) 34.4 [place] % (Auto) 6.7 Eos % (Auto) 1.0 Baso % (Auto) 0.2 Absolute Neuts (auto) 2.9 Absolute Lymphs (auto) 1.75 Nucleated RBC % 0 ESR 9 Sodium 138 Potassium 4.2 Chloride 104 Carbon Dioxide 28.0 Anion Gap 6 BUN 9 Creatinine 0.69 Estim Creat Clear Calc 47.52 Est GFR (MDRD) Af Amer 108 Est GFR (MDRD) Non-Af 89 BUN/Creatinine Ratio 13.0 Glucose 100 Calcium 9.5 C-React Prot Ext Range < 2.90 - Medical Decision Making Patient presented secondary to back pain and numbness. Patient has a normal neurologic exam, her paresthesias are more subjective than objective. CBC chemistry ESR and CRP were obtained were found to be unremarkable. MRI imaging of the patient's cervical and thoracic spine were ordered and are pending at this time. Patient will be signed out to the oncoming physician who will follow up on the patient's imaging after it is performed. <Kurt Coker - Last Filed: 11/18/20 16:04> X-Ray: - - X-ray of the chest reveals no wide mediastinum. Cardiac silhouette and size normal. Lung parenchyma normal. Osseous structures appear normal. The x-ray was interpreted by me. Impressions Cervical Spine MRI 11/18/20 12:03 IMPRESSION: Normal unenhanced and enhanced MR examination of the cervical spine. Electronically Signed: García Restrepo MD at 21:01 EST , Service support , Thoracic Spine MRI 11/18/20 12:03 IMPRESSION: Normal unenhanced and enhanced MRI examination of the thoracic spine. Electronically Signed: García Restrepo MD at 20:56 EST , Service support , Chest X-Ray 11/18/20 17:20 IMPRESSION: COPD Electronically Signed: García Restrepo MD at 17:55 EST , Service support , 11/18/20 12:03 Spine Cervical W/WO Contrast [MRI] Stat Spine Thoracic W/WO Contrast [MRI] Stat 11/18/20 17:20 Chest PA and Lateral [RAD] Stat Laboratory Results 11/18/20 11/18/20 12:15 12:15 WBC 5.1 RBC 4.46 Hgb 14.3 Hct 41.5 MCV 93.0 MCH 32.1 H MCHC 34.5 RDW Std Deviation 43.4 RDW Coeff of Yong 12.9 Plt Count 409 MPV 8.7 Immature Gran % (Auto) 0.200 Neut % (Auto) 57.5 Lymph % (Auto) 34.4 [place] % (Auto) 6.7 Eos % (Auto) 1.0 Baso % (Auto) 0.2 Absolute Neuts (auto) 2.9 Absolute Lymphs (auto) 1.75 Nucleated RBC % 0 ESR 9 Sodium 138 Potassium 4.2 Chloride 104 Carbon Dioxide 28.0 Anion Gap 6 BUN 9 Creatinine 0.69 Estim Creat Clear Calc 47.52 Est GFR (MDRD) Af Amer 108 Est GFR (MDRD) Non-Af 89 BUN/Creatinine Ratio 13.0 Glucose 100 Calcium 9.5 C-React Prot Ext Range < 2.90 Marais shows no abnormality. With normal ESR and C-reactive protein plan is to discharge to home. <Enoc García - Last Filed: 11/18/20 21:21> ED Disposition <Kurt Coker - Last Filed: 11/18/20 16:04> <Enoc García - Last Filed: 11/18/20 21:21> - Plan for ED Patient: Disposition: Home or Assisted Living Diagnosis: Back pain, Paresthesia Instructions: ED Back Pain (Acute or Chronic), ED Paraesthesias Prescriptions: Oxycodone HCl/Acetaminophen [Percocet 5/325] 1 tab PO Q6H PRN PRN 5 Days #20 tab PRN Reason: Pain Score 6-10 Prescription Printed Referrals: Toma Quintana DO [Primary Care Provider] - 1 Week if not improving
[2020-11-18 15:28] VITALS: BP 174/89; PULSE 74; RESP 18; O2SAT 100
--- NOTE | 2020-11-18 17:20 | RAD_ITS ---
STUDY: X-RAY CHEST REASON FOR EXAM: Female, 70 years old. thoracic back pain TECHNIQUE: Frontal and lateral views of the chest. COMPARISON: 10/18/2020 FINDINGS: The lungs are hyper aerated. The lungs are clear and expanded. There is no demonstrated pleural abnormality. Normal size heart. Normal mediastinum and candy. Normal visualized pulmonary arteries. Normal visualized aortic arch and descending thoracic aorta. Normal visualized thoracic spine. Normal visualized ribs, clavicles, and shoulders. There is no demonstrated abnormality of the visualized soft tissue structures of the upper abdomen. RAD/Chest PA and Lateral IMPRESSION: COPD Electronically Signed: García Restrepo MD at 17:55 EST , Service support ,
[2020-11-18 20:09] VITALS: BP 159/92; PULSE 73; RESP 16; O2SAT 98
[2020-11-18] MEDS: oxyCODONE 5 MG Tablet PO (21:25)
[2020-11-18 21:27] VITALS: BP 183/94; PULSE 80; RESP 18; O2SAT 97
--- NOTE | 2020-11-18 21:56 | ED.RN ---
prescription filled by [facility] pharmacy. pt very pleasant at hi. appreciative.
== END 2020-11-18 21:56 | disposition home or self-care (01) ==
PROVIDERS: Emergency Medicine; Emergency Provider Emergency Medicine; PCP Internal Medicine
DX: M54.9 Dorsalgia, unspecified (principal); R20.2 Paresthesia of skin; J44.9 Chronic obstructive pulmonary disease, unspecified
CPT/HCPCS: 71046; 72156; 72157; 80048; 85025; 85652; 86140; 96374; 96376; 99284; A9575; A4216; J2405

== ENCOUNTER → 2020-11-19 13:55 | Outpatient (CLI) | payer MEDICARE, OTHER, SELFPAY ==
[2020-11-18 11:38] VITALS: BMI 20.7
== END ==
PROVIDERS: PCP Internal Medicine; Referring Provider Internal Medicine; Visit Provider Internal Medicine
DX: M54.6 Pain in thoracic spine (principal)
CPT/HCPCS: 84484; 85379

== ENCOUNTER → 2021-03-31 09:01 | Outpatient (CLI) | payer MEDICARE, OTHER, SELFPAY ==
--- NOTE | 2021-03-31 09:04 | CDU_ITS ---
Reason For Study: Carotid stenosis Rt. Velocities/BP Lt. Velocities/BP Prox CCA 68.2/16 cm/sec. Prox CCA 79.4/23.4 cm/sec. Mid CCA 59.1/17.3 cm/sec. Mid CCA 68.4/22.3 cm/sec. Dist CCA 56.5/13.4 cm/sec. Dist CCA 60.7/19 cm/sec. Prox ICA 94.3/12.1 cm/sec. Prox ICA 53.5/14.2 cm/sec. Mid ICA 72.1/21.3 cm/sec. Mid ICA 64.8/22.9 cm/sec. Dist ICA 89.1/30.4 cm/sec. Dist ICA 70.6/22.3 cm/sec. Rt. ICA/CCA = 1.6. Lt. ICA/CCA = 1.0. Prox ECA 66.9/8.2 cm/sec. Prox ECA 37.8/6.4 cm/sec. Rt. Vert. 46.5/10.2 cm/sec. Lt. Vert. 50.9/14.6 cm/sec. Right Extracranial There is intimal thickening but no significant atherosclerotic plaque noted in the right common carotid artery. There is heterogeneous, irregular atherosclerotic plaque noted in the right internal carotid artery. There is intimal thickening but no significant atherosclerotic plaque noted in the right external carotid artery. Antegrade flow is noted in the right vertebral artery. Left Extracranial There is intimal thickening but no significant atherosclerotic plaque noted in the left common carotid artery. There is heterogeneous, irregular atherosclerotic plaque noted in the left internal carotid artery. There is intimal thickening but no significant atherosclerotic plaque noted in the left external carotid artery. Antegrade flow is noted in the left vertebral artery. Procedure Carotid Duplex [id number]. This is a Carotid Duplex examination using B-mode, color flow and specral Doppler. Exam performed in department. VL/Carotid Duplex Ultrasound Interpretation Summary Mild (<50%) stenosis right extracranial internal carotid. Mild (<50%) stenosis left extracranial internal carotid. Flow within the vertebral arteries is antegrade bilaterally. Ordering Physician: Toma Quintana Referring Physician: Toma Quintana Performed By: Evelyne Schroeder RVT
--- NOTE | 2021-03-31 09:30 | BI_ITS ---
MAMMOGRAPHY - BILATERAL SCREENING REASON FOR EXAM: Female, 70 years old. Routine annual screening examination. PERTINENT HISTORY: Non-contributory. TECHNIQUE: Digital bilateral breast red (3D mammographic acquisition) in the CC and MLO projections. 2-D mediolateral oblique (MLO) and craniocaudad (CC) views of both breasts were obtained. CAD: Full Field Digital Mammography with Computer Added Detection was performed. COMPARISON: Comparison is made with prior study dated 03/28/2020 and 01/20/2019. FINDINGS: Breast Composition: The breasts are extremely dense, which lowers the sensitivity of mammography. There are no dominant masses or suspicious calcifications. No other significant abnormalities are identified. There has been no significant change since the prior study. BI/SCRN MAMM (CAD)W/RED BILAT IMPRESSION: Stable bilateral screening mammogram. Yearly follow-up mammogram recommended. (A) ASSESSMENT CATEGORY: BIRADS Category 1: Negative. A letter regarding these results will be sent to the patient by the facility within 30 days. Approximately 10% of breast cancers are not detected by mammography. A normal mammogram should not delay biopsy of a clinically suspicious abnormality. [id number] Electronically Signed: Bruce Contreras MD at 10:21 EDT , Service support ,
== END ==
PROVIDERS: PCP Internal Medicine; Referring Provider Internal Medicine; Visit Provider Internal Medicine
DX: Z12.31 Encounter for screening mammogram for malignant neoplasm of breast (principal); I65.23 Occlusion and stenosis of bilateral carotid arteries
CPT/HCPCS: 77063; 77067; 93880

== ENCOUNTER → 2022-03-12 | Outpatient (CLI) | payer MEDICARE, OTHER, SELFPAY ==
--- NOTE | 2022-03-12 08:06 | CDU_ITS ---
Reason For Study: carotid stenosis Rt. Velocities/BP Lt. Velocities/BP Prox CCA 74.7/16.0 cm/sec. Prox CCA 86.3/21.2 cm/sec. Mid CCA 60.4/14.7 cm/sec. Mid CCA 80.2/20.0 cm/sec. Dist CCA 63.0/16.0 cm/sec. Dist CCA 65.4/18.8 cm/sec. Prox ICA 119.3/17.0 cm/sec. Prox ICA 43.3/12.6 cm/sec. Mid ICA 59.3/20.0 cm/sec. Mid ICA 101.0/28.6 cm/sec. Dist ICA 67.9/23.7 cm/sec. Dist ICA 87.5/29.8 cm/sec. Rt. ICA/CCA = 2.0. Lt. ICA/CCA = 1.3. Prox ECA 81.2/13.4 cm/sec. Prox ECA 54.4/6.5 cm/sec. Rt. Vert. 49.5/11.4 cm/sec. Lt. Vert. 60.5/16.3 cm/sec. Right Extracranial There is intimal thickening but no significant atherosclerotic plaque noted in the right common carotid artery. There is heterogeneous, smooth atherosclerotic plaque noted in the right internal carotid artery. There is intimal thickening but no significant atherosclerotic plaque noted in the right external carotid artery. Antegrade flow is noted in the right vertebral artery. Left Extracranial There is intimal thickening but no significant atherosclerotic plaque noted in the left common carotid artery. There is heterogeneous, irregular atherosclerotic plaque noted in the left internal carotid artery. There is intimal thickening but no significant atherosclerotic plaque noted in the left external carotid artery. Antegrade flow is noted in the left vertebral artery. Procedure Carotid Duplex [id number]. This is a Carotid Duplex examination using B-mode, color flow and specral Doppler. The exam was diagnostic. Exam performed in department. VL/Carotid Duplex Ultrasound Interpretation Summary Mild (<50%) stenosis right extracranial internal carotid. Mild (<50%) stenosis left extracranial internal carotid. Flow within the vertebral arteries is antegrade bilaterally. Ordering Physician: Toma Quintana Performed By: Emiliano Sheikh RVT
== END | disposition home or self-care (01) ==
LOC: CVS 08:04
PROVIDERS: PCP Internal Medicine; Referring Provider Internal Medicine; Visit Provider Internal Medicine
DX: I65.23 Occlusion and stenosis of bilateral carotid arteries (principal)
CPT/HCPCS: 93880

== ENCOUNTER → 2022-04-07 | Outpatient (CLI) | payer MEDICARE, OTHER, SELFPAY ==
--- NOTE | 2022-04-07 15:26 | BI_ITS ---
MAMMOGRAPHY - BILATERAL SCREENING REASON FOR EXAM: Female, 71 years old. Routine annual screening examination. PERTINENT HISTORY: Non-contributory. TECHNIQUE: Digital bilateral breast red (3D mammographic acquisition) in the CC and MLO projections. 2-D mediolateral oblique (MLO) and craniocaudad (CC) views of both breasts were obtained. CAD: Full Field Digital Mammography with Computer Added Detection was performed. COMPARISON: Comparison is made with prior study dated 03/31/2021 and 03/28/2020. FINDINGS: Breast Composition: The breasts are extremely dense, which lowers the sensitivity of mammography. There are no dominant masses or suspicious calcifications. No other significant abnormalities are identified. There has been no significant change since the prior study. BI/SCRN MAMM (CAD)W/RED BILAT IMPRESSION: Stable bilateral screening mammogram. Yearly follow-up mammogram recommended. (A) ASSESSMENT CATEGORY: BIRADS Category 1: Negative. A letter regarding these results will be sent to the patient by the facility within 30 days. Approximately 10% of breast cancers are not detected by mammography. A normal mammogram should not delay biopsy of a clinically suspicious abnormality. [id number] Electronically Signed: Bruce Contreras MD at 8:40 EDT ,
--- NOTE | 2022-04-07 15:31 | BD_ITS ---
STUDY: DUAL ENERGY X-RAY ABSORPTIOMETRY / DXA REASON FOR EXAM: Female, 71 years old. M85.89. The patient is postmenopausal. TECHNIQUE: Bone Mineral Density (BMD) measurements of lumbar spine and bilateral hips were obtained. COMPARISON: Comparison is made with prior study dated 03/28/2020 FINDINGS: Lumbar Spine (L1-L4): g/cm2 (1.110) / T-score (0.7) / Z-score (2.8) Findings are suggestive of normal bone density with a low fracture risk. Left Femur Total: g/cm2 (0.840) / T-score (-0.8) / Z-score (0.7) Left Femoral Neck: g/cm2 (0.714) / T-score (-1.2) / Z-score (0.6) Right Femur Total: g/cm2 (0.854) / T-score (-0.7) / Z-score (0.8) Right Femoral Neck: g/cm2 (0.719) / T-score (-1.2) / Z-score (0.7) The T-Scores on the most recent prior examination were: Lumbar Spine (L1-L4): There has been worsening of bone density since the previous examination. Left Femur Total: which represents an improvement of 3%. Right Femur Total: which represents an improvement of 3.3%. BD/Dexa Bone Density Study IMPRESSION: The patient is considered osteopenic as outlined below according to World Silv[employer] Organization (WHO) criteria with a low fracture risk. There has been improvement of bone density since the previous examination. Reference Information: The T-score is the number of standard deviations above or below the standard which is normal for young adults at their peak bone mineral density. The World Health Organization (WHO) interprets the T-scores as follows: Above -1 Normal bone density Between -1 and -2.5 Osteopenia Equal to / or below -2.5 Osteoporosis As a practical clinical guideline, osteopenia may be graded as follows: Mild -1 through -1.5 Moderate -1.6 through -2.0 Severe -2.1 through -2.4 The Z-score is the number of standard deviations above or below age-matched controls. A Z-score of less than -1.5 would be considered abnormal. References: 1. NIH Osteoporosis and Related Bone Diseases www osteo.org 2. International Society for Clinical Densitometry www iscd.org 3. National Osteoporosis Foundation www nof.org Electronically Signed: Bruce Contreras MD at 15:46 EDT ,
== END | disposition home or self-care (01) ==
LOC: OPBD 15:24
PROVIDERS: PCP Internal Medicine; Visit Provider Internal Medicine
DX: Z12.31 Encounter for screening mammogram for malignant neoplasm of breast (principal); M85.89 Other specified disorders of bone density and structure, multiple sites
CPT/HCPCS: 77063; 77067; 77080

== ENCOUNTER → 2023-03-02 | Outpatient (CLI) | payer MEDICARE, OTHER, SELFPAY ==
--- NOTE | 2023-03-02 10:58 | CDU_ITS ---
Reason For Study: carotid stenosis Rt. Velocities/BP Lt. Velocities/BP Prox CCA 67.4/18.2 cm/sec. Prox CCA 76.2/19.0 cm/sec. Mid CCA 56.0/17.3 cm/sec. Mid CCA 72.9/22.3 cm/sec. Dist CCA 57.9/17.3 cm/sec. Dist CCA 58.6/16.8 cm/sec. Prox ICA 80.2/16.3 cm/sec. Prox ICA 39.9/12.4 cm/sec. Mid ICA 63.0/20.0 cm/sec. Mid ICA 85.0/33.3 cm/sec. Dist ICA 77.7/31.1 cm/sec. Dist ICA 72.9/25.6 cm/sec. Rt. ICA/CCA = 1.4. Lt. ICA/CCA = 1.2. Prox ECA 130.5/16.3 cm/sec. Prox ECA 49.8/9.1 cm/sec. Rt. Vert. 49.4/12.6 cm/sec. Lt. Vert. 58.6/16.8 cm/sec. Right Extracranial There is intimal thickening but no significant atherosclerotic plaque noted in the right common carotid artery. There is heterogeneous, irregular atherosclerotic plaque noted in the right internal carotid artery. There is intimal thickening but no significant atherosclerotic plaque noted in the right external carotid artery. Antegrade flow is noted in the right vertebral artery. Left Extracranial There is intimal thickening but no significant atherosclerotic plaque noted in the left common carotid artery. There is heterogeneous, irregular atherosclerotic plaque noted in the left internal carotid artery. There is intimal thickening but no significant atherosclerotic plaque noted in the left external carotid artery. Antegrade flow is noted in the left vertebral artery. Procedure Carotid Duplex [id number]. This is a Carotid Duplex examination using B-mode, color flow and specral Doppler. The exam was diagnostic. Exam performed in department. VL/Carotid Duplex Ultrasound Interpretation Summary Mild (<50%) stenosis right extracranial internal carotid. Mild (<50%) stenosis left extracranial internal carotid. Flow within the vertebral arteries is antegrade bilaterally. Ordering Physician: Toma Quintana Performed By: Emiliano Sheikh RVT
== END | disposition home or self-care (01) ==
LOC: CVS 10:57
PROVIDERS: PCP Internal Medicine; Referring Provider Internal Medicine; Visit Provider Internal Medicine
DX: I65.23 Occlusion and stenosis of bilateral carotid arteries (principal)
CPT/HCPCS: 93880

== ENCOUNTER → 2023-04-06 | Outpatient (CLI) | payer MEDICARE, OTHER, SELFPAY ==
--- NOTE | 2023-04-06 12:08 | BI_ITS ---
MAMMOGRAPHY - BILATERAL SCREENING REASON FOR EXAM: Female, 72 years old. Routine annual screening examination. PERTINENT HISTORY: Non-contributory. TECHNIQUE: Digital bilateral breast red (3D mammographic acquisition) in the CC and MLO projections. 2-D mediolateral oblique (MLO) and craniocaudad (CC) views of both breasts were obtained. CAD: Full Field Digital Mammography with Computer Added Detection was performed. COMPARISON: Comparison is made with prior study April 07, 2022 and March 31, 2021. FINDINGS: Breast Composition: The breasts are extremely dense, which lowers the sensitivity of mammography. There are no dominant masses or suspicious calcifications. No other significant abnormalities are identified. There has been no significant change since the prior study. BI/SCRN MAMM (CAD)W/RED BILAT IMPRESSION: Stable bilateral screening mammogram. Yearly follow-up mammogram recommended. (A) ASSESSMENT CATEGORY: BIRADS Category 1: Negative. A letter regarding these results will be sent to the patient by the facility within 30 days. Approximately 10% of breast cancers are not detected by mammography. A normal mammogram should not delay biopsy of a clinically suspicious abnormality. [id number] Electronically Signed: Bruce Contreras MD at 13:56 EDT ,
== END | disposition home or self-care (01) ==
PROVIDERS: PCP Internal Medicine; Referring Provider Internal Medicine; Visit Provider Internal Medicine
DX: Z12.31 Encounter for screening mammogram for malignant neoplasm of breast (principal)
CPT/HCPCS: 77063; 77067

== ENCOUNTER → 2023-08-24 | Outpatient (CLI) | payer MEDICARE, OTHER, SELFPAY ==
--- NOTE | 2023-08-24 10:54 | ECHOD_ITS ---
Reason For Study: Mitral Regurgitation Procedure This was a 2D Doppler, Color Flow transthoracic echocardiogram. Exam performed in department. Left Ventricle Normal LV size. The estimated ejection fraction is 60 %. No evidence for diastolic dysfunction. No regional wall motion abnormalities noted. Right Ventricle Normal RV size. Normal systolic function. Atria Normal left atrium. Normal right atrium. No doppler evidence for ASD. Mitral Valve There is no mitral valve stenosis. Mild (1+) mitral valve insufficiency. Tricuspid Valve There is no tricuspid stenosis. Trivial tricuspid valve insufficiency. Pulmonary artery systolic pressure is 25 mmHg. Aortic Valve Trisinus/trileaflet aortic valve. There is no aortic stenosis. No aortic valve insufficiency. Pulmonic Valve There is no pulmonic valvular stenosis. No pulmonic valve insufficiency. Great Vessels Normal aortic root. Pericardium/Pleural No pericardial effusion. MMode/2D Measurements & Calculations LVIDd: 4.1 cm IVSd: 0.84 cm LA dimension: 3.2 cm LVIDs: 2.3 cm LVPWd: 0.61 cm RVDd: 3.6 cm FS: 43.8 % LAV(MOD-bp): 48.4 ml LA A4 area: 17.0 cm2 RA A4 area: 16.0 cm2 LAV(MOD-bp) Indexed: 29.7 ml/m2 LAV(MOD-sp2): 51.0 ml LAV(MOD-sp4): 42.5 ml TAPSE: 2.2 cm Time Measurements MV dec time: 0.23 sec Doppler Measurements & Calculations MV E max osvaldo: 82.9 cm/sec Lat Peak E' Osvaldo: 11.0 cm/sec Med Peak E' Osvaldo: 10.1 cm/sec MV A max osvaldo: 70.7 cm/sec E/E' lat: 7.5 E/E' med: 8.2 MV E/A: 1.2 MV V2 max: 90.8 cm/sec MV P1/2t max osvaldo: 91.8 cm/sec Ao V2 max: 158.5 cm/sec MV max P.3 mmHg MV P1/2t: 73.6 msec Ao max P.1 mmHg MV V2 mean: 46.5 cm/sec Ao V2 mean: 108.8 cm/sec MV mean P.1 mmHg MV dec slope: 365.4 cm/sec2 Ao mean P.5 mmHg MV V2 VTI: 27.6 cm MVA(P1/2t): 3.0 cm2 Ao V2 VTI: 36.1 cm AV (velocity ratio): 0.90 LV V1 max: 142.6 cm/sec MR max osvaldo: 472.9 cm/sec PA V2 max: 93.3 cm/sec LV V1 max P.1 mmHg MR max P.4 mmHg LV V1 mean P.5 mmHg LV V1 mean: 99.9 cm/sec LV V1 VTI: 32.6 cm TR max osvaldo: 232.3 cm/sec TR max P.6 mmHg ECHO/Echo Complete Interpretation Summary The estimated ejection fraction is 60 %. No evidence for diastolic dysfunction. Mild (1+) mitral valve insufficiency. Ordering Physician: Toma Quintana Referring Physician: Toma Quintana Performed By: Mykel Rivera RCS
== END | disposition home or self-care (01) ==
LOC: CVS 10:52
PROVIDERS: PCP Internal Medicine; Referring Provider Internal Medicine; Visit Provider Internal Medicine
DX: I34.0 Nonrheumatic mitral (valve) insufficiency (principal)
CPT/HCPCS: 93306

== ENCOUNTER → 2024-03-15 | Outpatient (CLI) | payer MEDICARE, OTHER, SELFPAY ==
--- NOTE | 2024-03-15 09:53 | CDU_ITS ---
Reason For Study: CAROTID STENOSIS Rt. Velocities/BP Lt. Velocities/BP Prox CCA 67.4/19.2 cm/sec. Prox CCA 76.4/19.7 cm/sec. Mid CCA 65.5/19.2 cm/sec. Mid CCA 59.8/21.5 cm/sec. Dist CCA 59.8/23.0 cm/sec. Dist CCA 60.7/19.7 cm/sec. Prox ICA 60.7/24.8 cm/sec. Prox ICA 75.6/26.5 cm/sec. Mid ICA 75.3/32.3 cm/sec. Mid ICA 70.7/25.3 cm/sec. Dist ICA 94.9/33.5 cm/sec. Dist ICA 67.0/22.8 cm/sec. Rt. ICA/CCA = 94.9/65.5=1.4. Lt. ICA/CCA = 75.6/59.8=1.3. Prox ECA 43.7/7.8 cm/sec. Prox ECA 107.6/13.0 cm/sec. Rt. Vert. 48.8/13.0 cm/sec. Lt. Vert. 42.1/13.8 cm/sec. Right Extracranial There is intimal thickening but no significant atherosclerotic plaque noted in the right common carotid artery. There is heterogeneous, irregular atherosclerotic plaque noted in the right internal carotid artery. There is intimal thickening but no significant atherosclerotic plaque noted in the right external carotid artery. Antegrade flow is noted in the right vertebral artery. Left Extracranial There is intimal thickening but no significant atherosclerotic plaque noted in the left common carotid artery. There is heterogeneous, irregular atherosclerotic plaque noted in the left internal carotid artery. There is intimal thickening but no significant atherosclerotic plaque noted in the left external carotid artery. Antegrade flow is noted in the left vertebral artery. Procedure Carotid Duplex 34092. This is a Carotid Duplex examination using B-mode, color flow and specral Doppler. Exam performed in department. VL/Carotid Duplex Ultrasound Interpretation Summary Mild (<50%) stenosis right extracranial internal carotid. Mild (<50%) stenosis left extracranial internal carotid. Patent and antegrade vertebrals bilaterally. Ordering Physician: Toma Quintana Referring Physician: Toma Quintana Performed By: Bárbara Salazar RVT, RDCS and Student
== END | disposition home or self-care (01) ==
LOC: CVS 09:52
PROVIDERS: PCP Internal Medicine; Referring Provider Internal Medicine; Visit Provider Internal Medicine
DX: I65.23 Occlusion and stenosis of bilateral carotid arteries (principal)
CPT/HCPCS: 93880

== ENCOUNTER → 2024-04-27 | Outpatient (CLI) | payer MEDICARE, OTHER, SELFPAY ==
--- NOTE | 2024-04-27 09:14 | BI_ITS ---
MAMMOGRAPHY - BILATERAL SCREENING REASON FOR EXAM: Female, 73 years old. Routine annual screening examination. PERTINENT HISTORY: Non-contributory. TECHNIQUE: Digital bilateral breast red (3D mammographic acquisition) in the CC and MLO projections. 2-D mediolateral oblique (MLO) and craniocaudad (CC) views of both breasts were obtained. CAD: Full Field Digital Mammography with Computer Added Detection was performed. COMPARISON: Comparison is made with prior study dated April 06, 2023 and April 07, 2022. FINDINGS: Breast Composition: The breasts are extremely dense, which lowers the sensitivity of mammography. There are no dominant masses or suspicious calcifications. No other significant abnormalities are identified. There has been no significant change since the prior study. BI/SCRN MAMM (CAD)W/RED BILAT IMPRESSION: Stable bilateral screening mammogram. Yearly follow-up mammogram recommended. (A) ASSESSMENT CATEGORY: BIRADS Category 1: Negative. A letter regarding these results will be sent to the patient by the facility within 30 days. Approximately 10% of breast cancers are not detected by mammography. A normal mammogram should not delay biopsy of a clinically suspicious abnormality. [id number] Electronically Signed: Bruce Contreras MD at 11:20 EDT ,
--- NOTE | 2024-04-27 09:22 | BD_ITS ---
STUDY: DUAL ENERGY X-RAY ABSORPTIOMETRY / DXA REASON FOR EXAM: Female, 73 years old. [id number] TECHNIQUE: Bone Mineral Density (BMD) measurements of lumbar spine and bilateral hips were obtained. COMPARISON: Comparison is made with prior study dated April 07, 2012. FINDINGS: Lumbar Spine (L1-L4): g/cm2 (1.114) / T-score (0.7) / Z-score (3.0) Findings are suggestive of normal bone density with a low fracture risk. Left Femur Total: g/cm2 (0.833) / T-score (-0.9) / Z-score (0.8) Left Femoral Neck: g/cm2 (0.668) / T-score (-1.6) / Z-score (0.3) Right Femur Total: g/cm2 (0.845) / T-score (-0.8) / Z-score (0.9) Right Femoral Neck: g/cm2 (0.709) / T-score (-1.3) / Z-score (0.7) The T-Scores on the most recent prior examination were: Lumbar Spine (L1-L4): There has been improvement of bone density since the previous examination. Left Femur Total: which represents a worsening of 0.8%. Right Femur Total: which represents a worsening of 1.1%. BD/Dexa Bone Density Study IMPRESSION: The patient is considered osteopenic as outlined below according to World [employer] Organization (WHO) criteria with a moderate fracture risk. There has been worsening of bone density since the previous examination. Reference Information: The T-score is the number of standard deviations above or below the standard which is normal for young adults at their peak bone mineral density. The World Health Organization (WHO) interprets the T-scores as follows: Above -1 Normal bone density Between -1 and -2.5 Osteopenia Equal to / or below -2.5 Osteoporosis As a practical clinical guideline, osteopenia may be graded as follows: Mild -1 through -1.5 Moderate -1.6 through -2.0 Severe -2.1 through -2.4 The Z-score is the number of standard deviations above or below age-matched controls. A Z-score of less than -1.5 would be considered abnormal. References: 1. NIH Osteoporosis and Related Bone Diseases www osteo.org 2. International Society for Clinical Densitometry www iscd.org 3. National Osteoporosis Foundation www nof.org Electronically Signed: Bruce Contreras MD at 10:01 EDT ,
== END | disposition home or self-care (01) ==
LOC: OPBD 09:13
PROVIDERS: PCP Internal Medicine; Referring Provider Internal Medicine; Visit Provider Internal Medicine
DX: Z12.31 Encounter for screening mammogram for malignant neoplasm of breast (principal); Z78.0 Asymptomatic menopausal state
CPT/HCPCS: 77063; 77067; 77080

== ENCOUNTER → 2024-11-28 | Outpatient (CLI) | payer MEDICARE, OTHER, SELFPAY | END | disposition home or self-care (01) | LOC: LABSPEC 12:04 | PROVIDERS: PCP Internal Medicine; Referring Provider Internal Medicine; Visit Provider Internal Medicine | DX: E87.5 Hyperkalemia (principal) | CPT/HCPCS: 84132 ==

== ENCOUNTER → 2025-05-07 | Outpatient (CLI) | payer MEDICARE, OTHER, SELFPAY ==
--- NOTE | 2025-05-07 09:00 | CDU_ITS ---
Reason For Study Reason For Study: Carotid stenosis Rt. Velocities/BP Lt. Velocities/BP Prox CCA 67.4/19.2 cm/sec. Prox CCA 83.4/23.9 cm/sec. Mid CCA 63.6/16.3 cm/sec. Mid CCA 74.9/23 cm/sec. Dist CCA 62.6/17.3 cm/sec. Dist CCA 73/24.8 cm/sec. Prox ICA 83.4/23 cm/sec. Prox ICA 53.5/17.7 cm/sec. Mid ICA 98.1/33.3 cm/sec. Mid ICA 102.5/36.6 cm/sec. Dist ICA 104.7/34.8 cm/sec. Dist ICA 98.1/41 cm/sec. Rt. ICA/CCA = 1.65. Lt. ICA/CCA = 1.37. Prox ECA 55.1/7.8 cm/sec. Prox ECA 43/5.5 cm/sec. Rt. Vert. 48.5/10.7 cm/sec. Lt. Vert. 53.2/18.2 cm/sec. Right Extracranial There is intimal thickening but no significant atherosclerotic plaque noted in the right common carotid artery. There is heterogeneous, irregular atherosclerotic plaque noted in the right internal carotid artery. There is intimal thickening but no significant atherosclerotic plaque noted in the right external carotid artery. Antegrade flow is noted in the right vertebral artery. Left Extracranial There is intimal thickening but no significant atherosclerotic plaque noted in the left common carotid artery. There is heterogeneous, irregular atherosclerotic plaque noted in the left internal carotid artery. There is intimal thickening but no significant atherosclerotic plaque noted in the left external carotid artery. Antegrade flow is noted in the left vertebral artery. Procedure Carotid Duplex [id number]. This is a Carotid Duplex examination using B-mode, color flow and specral Doppler. Exam performed in department. VL/Carotid Duplex Ultrasound Interpretation Summary Mild (<50%) stenosis right extracranial internal carotid. Mild (<50%) stenosis left extracranial internal carotid. Patent and antegrade vertebrals bilaterally. Ordering Physician: Toma Quintana Referring Physician: Toma uQintana Performed By: Evelyne Schroeder RVT
--- NOTE | 2025-05-07 10:00 | BI_ITS ---
EXAM: SCRN MAMM (CAD)W/RED BILAT DATE: 05/07/2025 CLINICAL HISTORY: F, Age 75 y/o , SCRN MAMM (CAD)W/RED BILAT; DUE IN APRIL TECHNIQUE: SCRN MAMM (CAD)W/RED BILAT COMPARISON: Prior exam(s) dated 04/27/2024, 04/06/2023, 04/07/2022. FINDINGS: TISSUE DENSITY: The breasts are heterogeneously dense, which may obscure small masses. The mammogram demonstrates that the patient has dense breasts. Supplemental screening with whole breast ultrasound or MRI may be considered for further evaluation. Bilateral Breast Mammographic Findings: No significant masses, calcifications or other abnormalities are identified. BI/SCRN MAMM (CAD)W/RED BILAT IMPRESSION: There is no mammographic evidence of malignancy. OVERALL FINAL ASSESSMENT BI-RADS 1: NEGATIVE. RECOMMEND ANNUAL MAMMOGRAPHIC SCREENING. RECOMMENDATION: Routine annual follow-up in 1 Year A letter with findings and recommendations will be mailed to the patient. Reading Location: [id number]
== END | disposition home or self-care (01) ==
LOC: CVS 08:59
PROVIDERS: PCP Internal Medicine; Referring Provider Internal Medicine; Visit Provider Internal Medicine
DX: Z12.31 Encounter for screening mammogram for malignant neoplasm of breast (principal); I65.23 Occlusion and stenosis of bilateral carotid arteries
CPT/HCPCS: 77063; 77067; 93880

== ENCOUNTER → 2025-05-29 | Outpatient (CLI) | payer MEDICARE, OTHER, SELFPAY | END | disposition home or self-care (01) | PROVIDERS: PCP Internal Medicine; Referring Provider Internal Medicine; Visit Provider Internal Medicine | DX: R92.30 Dense breasts, unspecified (principal); R92.8 Other abnormal and inconclusive findings on diagnostic imaging of breast ==

== ENCOUNTER 2025-06-28 05:31 | Emergency (ER) | payer MEDICARE, OTHER, SELFPAY ==
[2025-06-28 05:32] VITALS: BP 146/75; PULSE 87; RESP 16; TEMP 36.8; O2SAT 99; BMI 21.1
--- NOTE | 2025-06-28 05:48 | VDLE_ITS ---
Reason For Study Reason For Study: Right leg swelling RIGHT LEFT GSV is normal. CFV is compressible, spontaneous, phasic, competent, CFV is compressible, spontaneous, phasic, competent and demonstrates normal augmentation. and demonstrates normal augmentation. FV is compressible, spontaneous, phasic, competent and demonstrates normal augmentation. POP V is compressible, spontaneous, phasic, competent and demonstrates normal augmentation. T/P Trunk is compressible. PTV is compressible. RT PerV is compressible. Acute deep vein thrombosis is noted in the right SoleusV. It is NONCOMPRESSIBLE and dilated. Procedure This is a venous duplex using B-mode, color flow and spectral Doppler. Exam performed portable in ED. A preliminary report was called and/or faxed to Dr. Perry. VL/Venous Duplex US, Unilateral Interpretation Summary Acute deep vein thrombosis is noted in the right soleus vein. The remainder of the right lower extremity deep venous system is patent and compressible. Valvular competence appears intact within th e proximal deep venous system on the right . The right great saphenous vein appears patent and compressible segmenta lly. The left common femoral vein is patent and compressible . Ordering Physician: Jhonny Graf Referring Physician: Toma Quintana D.O. Performed By: Evelyne Schroeder RVT
--- NOTE | 2025-06-28 05:49 | EDS_ITS ---
HPI <Dr. Jhonny Graf, DO - Last Filed: 06/28/25 21:59> History of Present Illness Chief Complaint: Lower Extremity Injury Informant: patient and friend Narrative Narrative: Patient is a 75-year-old female who reports a previous history of DVT in her left leg following an injury years ago. She states a few days ago she rolled her right ankle. She went and saw her family doctor who ordered an x-ray and patient states it was read as negative for acute fracture or dislocation. She was advised to follow-up with podiatry to assess for potential ligamentous injury. Patient states she saw them and was advised there is concern that she may have a blood clot. She states because of her past history of a clot in the other leg following a similar trauma she has concern for this. She states she is scheduled to have a ultrasound later today but the pain has worsened overnight and is not being controlled with [id number] medication and therefore she comes in for evaluation The patient states there is no chest pain or shortness of breath or pain with inspiration. PFSH <Dr. Jhonny Graf, DO - Last Filed: 06/28/25 21:59> [facility] Home Medications ?Medication ?Instructions ?Recorded ?Last Taken ?Type apixaban 5 mg (74 tabs) tablets in See Rx Instructions PO .COMPLEX 06/28/25 Unknown Rx a dose pack (Eliquis DVT-PE Treat #74 tabs 30D Start) oxycodone-acetaminophen 5 mg-325 1 tab PO Q6H PRN pain 3 days #12 06/28/25 Unknown Rx mg tablet (Endocet) tabs Allergy/AdvReac Type Severity Reaction Status Date / Time No Known Allergies Allergy Verified 11/18/20 11:37 Social History Smoking Status: Never smoker ROS <Dr. Jhonny Graf, DO - Last Filed: 06/28/25 21:59> ROS ED Constitutional Constitutional ED: Denies chills or fever(s) Eyes Eyes: Denies change in vision ENT ENT ED: Denies sore throat Cardiovascular Cardiovascular: Denies chest pain, palpitations or racing heartbeat Respiratory/Chest Respiratory/Chest: Denies cough or dyspnea Gastrointestinal Gastrointestinal: Denies abdominal pain, diarrhea, nausea or vomiting Musculoskeletal Musculoskeletal: Reports other Details: Positive right leg pain and swelling Integumentary Denies rash Neurologic Neurologic: Denies headache(s) Hematologic/Lymphatic Hematologic/Lymphatic: Denies easy bleeding or easy bruising EXAM <Dr. Jhonny Graf, DO - Last Filed: 06/28/25 21:59> Physical Exam Const Vital Signs: 06/28/25 05:32 06/28/25 08:38 Temperature 98.3 F 98.1 F Temperature Source Oral Pulse Rate 87 81 Respiratory Rate 16 16 Blood Pressure 146/75 H 135/77 H Blood Pressure Mean 98 96 Pulse Ox 99 100 Positive well nourished and well developed General Appearance ED: well developed; Negative for pallor HEENT HEENT Narrative: Normocephalic atraumatic Eyes PERRL and EOMs intact bilaterally General Eye ED: Negative for scleral icterus Neck supple and no JVD Resp normal respiratory effort and clear to auscultation bilaterally Resp Narrative: No pruritic chest pain noted Cardio regular rate and regular rhythm Rate: other Other Details: Heart is regular rate and rhythm without murmurs rubs or gallops Radial and carotid pulses are equal and symmetric Extremity Extremity Narrative: Right lower extremity is neurovascularly intact The patient has diffuse asymmetric swelling of the right leg compared to the left from the foot to just below the knee. It is roughly 2 times the size of the left. There is asymmetric warmth and faint erythema. Positive Homans' sign on the right. All compartments are soft and compressible going against compartment syndrome Achilles tendon is intact No obvious ligamentous laxity noted Neuro oriented x3, CN's II-XII intact bilaterally and no sensory deficits noted Sensorium / Orientation: alert Psych mental status grossly normal Skin Skin Narrative: Asymmetric soft tissue swelling with asymmetric warmth and faint erythema to the right lower leg as documented above General Skin Exam: Negative for jaundice or pallor <Dr. Christiano Perry, DO - Last Filed: 06/28/25 08:25> Physical Exam Const Vital Signs: 06/28/25 05:32 06/28/25 08:38 Temperature 98.3 F 98.1 F Temperature Source Oral Pulse Rate 87 81 Respiratory Rate 16 16 Blood Pressure 146/75 H 135/77 H Blood Pressure Mean 98 96 Pulse Ox 99 100 MDM <Dr. Jhonny Graf, DO - Last Filed: 06/28/25 21:59> MDM MDM Narrative Medical decision making narrative: Patient arrived to ER slightly hypertensive but otherwise with stable vitals. She reported a past history of DVT in the left leg following a previous injury. She now has reported injury to the right ankle and now asymmetric swelling and pain. She has had a previous x-ray revealing no acute fracture or dislocation. Her history and exam is most consistent with a DVT. In order to check for this I will perform a venous duplex. Physical exam does not suggest infection such as cellulitis abscess or gout. There are no signs of compartment syndrome. As the patient is not tachycardic or reporting shortness of breath or pleuritic chest pain I do not feel the need for a CTA of the chest. The patient will have a venous duplex of the right leg obtained once ultrasound arrives around 7 AM. However as there is high likelihood that it will be positive I will place her on Eliquis at 5 mg twice a day as she reports no history of kidney disorder as well as Percocet for pain control. History & Record Review Discussion w/independent historian: Patient and Friend Radiography Diagnostic Testing: Clinical Impression(s) from Imaging Studies Venous Doppler Study 06/28/25 05:48 Interpretation Summary Acute deep vein thrombosis is noted in the right soleus vein. The remainder of the right lower extremity deep venous system is patent and compressible. Valvular competence appears intact within the proximal deep venous system on the right . The right great saphenous vein appears patent and compressible segm entally. The left common femoral vein is patent and compressible . Ordering Physician: Jhonny Graf Referring Physician: Toma Quintana D.O. Performed By: Evelyne Schroeder RVT <Dr. Christiano Perry, DO - Last Filed: 06/28/25 08:25> MDM Radiography Diagnostic Testing: Clinical Impression(s) from Imaging Studies Venous Doppler Study 06/28/25 05:48 Interpretation Summary Acute deep vein thrombosis is noted in the right soleus vein. The remainder of the right lower extremity deep venous system is patent and compressible. Valvular competence appears intact within the proximal deep venous system on the right . The right great saphenous vein appears patent and compressible segmentally. The left common femoral vein is patent and compressible . Ordering Physician: Jhonny Graf Referring Physician: Toma Quintana D.O. Performed By: Evelyne Schroeder RVT Venous duplex of the lower extremity was obtained. There is a DVT noted in the soleus vein. Treatment and Re-Evaluation :: Care of the patient was turned over to me pending venous duplex. Patient was noted to have a DVT in the soleus vein. Patient was given a prescription for Eliquis. Patient was given her first dose here. Patient was also given prescription for Percocet. Patient was instructed to keep her legs elevated. Patient was instructed to follow-up with her primary care physician in 5 to 7 days. Patient understood and was agreeable with the plan. All questions were answered. Discharge Plan Triage Chief Complaint: Lower Extremity Injury ED Provider: Jhonny Graf Dx/Rx/DC Orders Clinical Impression: Acute deep vein thrombosis (DVT) of right lower extremity, Right ankle sprain Instructions: DVT Dc Prescriptions: New Eliquis DVT-PE Treat 30D Start 5 mg (74 tabs) tablets,dose pack See Rx Instructions .ROUTE .COMPLEX Qty: 74 0RF Rx Instructions: orally per package directions oxycodone-acetaminophen [Endocet] 5-325 mg tablet 1 tab PO Q6H PRN (Reason: pain) 3 Days Qty: 12 0RF Primary Care Provider: Toma Quintana Referrals: Toma Quintana DO [Primary Care Provider] - Activity Restrictions/Additional Instructions: Please begin taking the Eliquis as directed to help resolve the DVT and use the Percocet for pain control during this time. Follow-up with your family doctor for repeat evaluation and if you develop chest pain or shortness of breath or have any further concerns please return to the ER for repeat evaluation. Print Language: Arabic Disposition Disposition: Home, Self Care Discharge Date/Time: 06/28/25 08:47
[2025-06-28 08:38] VITALS: BP 135/77; PULSE 81; RESP 16; TEMP 36.7; O2SAT 100
[2025-06-28] MEDS: APIXABAN 5 MG TABLET 10 MG PO (08:41)
== END 2025-06-28 08:47 | disposition home or self-care (01) ==
PROVIDERS: Emergency Provider Emergency Medicine; PCP Internal Medicine; Visit Provider Emergency Medicine
DX: I82.461 Acute embolism and thrombosis of right calf muscular vein (principal); Z86.718 Personal history of other venous thrombosis and embolism; Z79.01 Long term (current) use of anticoagulants; S93.401A Sprain of unspecified ligament of right ankle, initial encounter; X58.XXXA Exposure to other specified factors, initial encounter
CPT/HCPCS: 93971; 96372; 99282

== ENCOUNTER 2025-06-29 10:58 | Emergency (ER) | payer MEDICARE, OTHER, SELFPAY ==
[2025-06-29 10:59] VITALS: BP 122/63; PULSE 76; RESP 18; TEMP 36.6; O2SAT 100
[2025-06-29 11:00] VITALS: BMI 21.7
--- NOTE | 2025-06-29 12:41 | ED.VIS.LOWEX ---
HPI <DELIA Ospina - Last Filed: 06/29/25 17:19> History of Present Illness Chief Complaint: Lower Extremity Injury Narrative Narrative: Patient presenting today due to concerns for compartment syndrome to her right foot/ankle. Several days ago she rolled her right ankle, she followed up with her PCP and had an x-ray of the right ankle that was negative for fracture. She was then advised to follow-up with ortho foot/ankle due to concern for ligamentous injury, they repeated x-rays and did not see any fracture but because she continued to have swelling to her right ankle with a history of DVTs, they recommended she come into the ED for a venous duplex ultrasound. This was obtained yesterday and was positive for a DVT to the right Soleus vein, she was placed on Eliquis which she has been compliant with. She denies any chest pain or dyspnea. She was told to look out for any signs of compartment syndrome such as increased swelling/pain. She reports that her swelling is worse this morning and her pain has not improved, prompting her to return for evaluation. She denies any fevers or chills. She is able to ambulate. PFSH <DELIA Ospina - Last Filed: 06/29/25 17:19> [facility] Home Medications ?Medication ?Instructions ?Recorded ?Last Taken ?Type apixaban 5 mg (74 tabs) tablets in See Rx Instructions PO .COMPLEX 06/28/25 06/29/25 Rx a dose pack (Eliquis DVT-PE Treat #74 tabs 30D Start) oxycodone-acetaminophen 5 mg-325 1 tab PO Q6H PRN pain 3 days #12 06/28/25 06/29/25 Rx mg tablet (Endocet) tabs alosetron 0.5 mg tablet 0.5 mg PO DAILY 06/29/25 06/29/25 History amlodipine 5 mg tablet 5 mg PO DAILY 06/29/25 06/29/25 History bempedoic acid 180 mg tablet 180 mg PO DAILY 06/29/25 06/29/25 History (Nexletol) conjugated estrogens 0.625 mg 0.3125 mg PO DAILY 06/29/25 Unknown History tablet (Premarin) doxycycline hyclate 100 mg tablet 100 mg PO BID #14 tabs 06/29/25 Unknown Rx hydrocodone-acetaminophen 5-325mg 1 tab PO Q6H PRN PRN pain 06/29/25 Unknown History 5mg-325mg Allergy/AdvReac Type Severity Reaction Status Date / Time No Known Allergies Allergy Verified 06/29/25 10:59 Social History Smoking Status: Former smoker ROS <DELIA Ospina - Last Filed: 06/29/25 17:19> ROS ED Constitutional Constitutional ED: Denies chills or fever(s) Cardiovascular Cardiovascular: Denies chest pain Respiratory/Chest Respiratory/Chest: Denies dyspnea Musculoskeletal Musculoskeletal: Reports arthralgias Integumentary Denies Abrasions or rash Neurologic Neurologic: Denies paresthesias EXAM <DELIA Ospina - Last Filed: 06/29/25 17:19> Physical Exam Const Vital Signs: 06/29/25 10:59 06/29/25 12:58 06/29/25 14:00 Temperature 98 F Temperature Source Temporal Pulse Rate 76 77 71 Respiratory Rate 18 18 Blood Pressure 122/63 H 141/74 H 126/63 H Blood Pressure Mean 82 96 84 Pulse Ox 100 97 100 Oxygen Delivery Method Room Air Room Air Positive well nourished, well developed and no apparent distress General Appearance ED: well developed HEENT Reports normocephalic and head/scalp atraumatic Mouth ED: Yes moist mucous membranes normal Eyes PERRL and EOMs intact bilaterally Neck full ROM and supple Chest Wall inspection of chest normal Resp normal respiratory effort and clear to auscultation bilaterally Cardio regular rate and regular rhythm Back/Spine normal ROM and normal to inspection Extremity Extremity Narrative: Limited range of motion to the right ankle secondary to pain, bilateral DP and PT pulses 2+, good cap refill, sensation intact to the right lower extremity. There is ecchymosis and edema to the right medial malleolus, there is also erythema to the right medial ankle that does extend to the dorsum of the right foot and minimally to the distal hernandez. swelling of the right calf in comparison to the left. Compartments to the right lower leg are soft and compressible. Compartments to the right foot are soft and compressible. No pallor to the RLE. Neuro oriented x3, CN's II-XII intact bilaterally, moves all extremities, no focal motor deficits and no sensory deficits noted Sensorium / Orientation: awake and alert Psych mental status grossly normal and thought process normal Skin no rashes or lesions noted and no wounds <Dr. Travis Candelario DO - Last Filed: 06/29/25 21:52> Physical Exam Const Vital Signs: 06/29/25 10:59 06/29/25 12:58 06/29/25 14:00 Temperature 98 F Temperature Source Temporal Pulse Rate 76 77 71 Respiratory Rate 18 18 Blood Pressure 122/63 H 141/74 H 126/63 H Blood Pressure Mean 82 96 84 Pulse Ox 100 97 100 Oxygen Delivery Method Room Air Room Air MDM <DELIA Ospina - Last Filed: 06/29/25 17:19> [facility] MDM Narrative Medical decision making narrative: Patient presenting today due to concerns for compartment syndrome to her right foot. She sustained a right ankle injury several days ago, she had negative ankle films by her PCP and structural iron worker a few days ago. She did have increased erythema and edema to the right lower extremity in comparison to the left prompting her structural iron worker to send her to the ED yesterday to rule out DVT. She was found to have a DVT in the right soleus vein. She was placed on Eliquis which she has been compliant with. She has no dyspnea or chest pain. She was told to look out for signs of compartment syndrome including increased pain/swelling. She reports that her swelling to her right foot and ankle has worsened and her pain has not improved. She has soft and compressible compartments to her entire right lower extremity. She has intact sensation and strength to the right lower extremity. Right lower extremity without pallor, physical examination is not consistent with compartment syndrome. She does have decreased range of motion to the right ankle secondary to pain and painful range of motion of the right ankle, given this a CT scan of the ankle/foot will be obtained to assess for occult fracture and labs will be obtained to rule out septic joint given her overlying erythema. Her CBC, BMP, and ESR are unremarkable, CRP is elevated at 71.3. I did speak with Dr. De La Cruz who recommended I speak with the orthopedist she saw several days ago, I talked with Dr. Ron with the [facility], she had low concerns for compartment syndrome. She also has lower suspicion for cellulitis and septic joint but recommended using our best clinical judgment. Patient is able to ambulate, she is otherwise nontoxic-appearing. I will place her on a course of antibiotics to cover for potential cellulitis and recommended she follow-up closely with orthopedics as an outpatient. She will be discharged in stable condition. Return instructions were discussed Lab Data Attestation: I reviewed the patient's lab results. Labs: Laboratory Results - last 24 hr 06/29/25 12:40 WBC 8.6 RBC 4.31 Hgb 13.6 Hct 40.7 MCV 94.4 MCH 31.6 MCHC 33.4 RDW Std Deviation 46.8 H RDW Coeff of Yong 13.3 Plt Count 439 MPV 8.7 Immature Gran % (Auto) 0.500 Neut % (Auto) 61.4 Lymph % (Auto) 28.2 [place] % (Auto) 8.4 Eos % (Auto) 1.2 Baso % (Auto) 0.3 Absolute Neuts (auto) 5.3 Absolute Lymphs (auto) 2.43 Nucleated RBC % 0 ESR 11 Sodium 139 Potassium 3.9 Chloride 100 Carbon Dioxide 24.5 Anion Gap 15 BUN 17 Creatinine 0.80 Estim Creat Clear Calc 55.52 Est GFR (MDRD) Non-Af 78 BUN/Creatinine Ratio 21.3 H Glucose 86 Calcium 10.5 C-React Prot Ext Range 71.30 H Radiography Diagnostic Testing: Clinical Impression(s) from Imaging Studies Lower Extremity CT 06/29/25 13:06 IMPRESSION: Soft tissue swelling. No acute abnormality is seen. Reading Location: [facility] <Dr. Travis Candelario, DO - Last Filed: 06/29/25 21:52> [facility] Narrative Medical decision making narrative: Patient presenting today due to concerns for compartment syndrome to her right foot. She sustained a right ankle injury several days ago, she had negative ankle films by her PCP and structural iron worker a few days ago. She did have increased erythema and edema to the right lower extremity in comparison to the left prompting her structural iron worker to send her to the ED yesterday to rule out DVT. She was found to have a DVT in the right soleus vein. She was placed on Eliquis which she has been compliant with. She has no dyspnea or chest pain. She was told to look out for signs of compartment syndrome including increased pain/swelling. She reports that her swelling to her right foot and ankle has worsened and her pain has not improved. She has soft and compressible compartments to her entire right lower extremity. She has intact sensation and strength to the right lower extremity. Right lower extremity without pallor, physical examination is not consistent with compartment syndrome. She does have decreased range of motion to the right ankle secondary to pain and painful range of motion of the right ankle, given this a CT scan of the ankle/foot will be obtained to assess for occult fracture and labs will be obtained to rule out septic joint given her overlying erythema. Her CBC, BMP, and ESR are unremarkable, CRP is elevated at 71.3. I did speak with Dr. De La Cruz who recommended I speak with the orthopedist she saw several days ago, I talked with Dr. Ron with the [facility], she had low concerns for compartment syndrome. She also has lower suspicion for cellulitis and septic joint but recommended using our best clinical judgment. Patient is able to ambulate, she is otherwise nontoxic-appearing. I will place her on a course of antibiotics to cover for potential cellulitis and recommended she follow-up closely with orthopedics as an outpatient. She will be discharged in stable condition. Return instructions were discussed ED attending note: I evaluated the patient in conjunction with the WILLIAM. I agree with his/her statements and above findings. I have personally performed a face to face assessment of the patient and have reviewed the WILLIAM Note. I performed a substantive portion of the visit including all aspects of the following. I personally saw the patient performed chart review, physical exam, reviewed labs, imaging (if obtained), and formulated a treatment and management plan. This note was generated with [employer] dictation software. It may contain incorrect words, spelling, and punctuation that were not noted in review of the chart prior to signing. Lab Data Labs: Laboratory Results - last 24 hr 06/29/25 12:40 WBC 8.6 RBC 4.31 Hgb 13.6 Hct 40.7 MCV 94.4 MCH 31.6 MCHC 33.4 RDW Std Deviation 46.8 H RDW Coeff of Yong 13.3 Plt Count 439 MPV 8.7 Immature Gran % (Auto) 0.500 Neut % (Auto) 61.4 Lymph % (Auto) 28.2 [place] % (Auto) 8.4 Eos % (Auto) 1.2 Baso % (Auto) 0.3 Absolute Neuts (auto) 5.3 Absolute Lymphs (auto) 2.43 Nucleated RBC % 0 ESR 11 Sodium 139 Potassium 3.9 Chloride 100 Carbon Dioxide 24.5 Anion Gap 15 BUN 17 Creatinine 0.80 Estim Creat Clear Calc 55.52 Est GFR (MDRD) Non-Af 78 BUN/Creatinine Ratio 21.3 H Glucose 86 Calcium 10.5 C-React Prot Ext Range 71.30 H Radiography Diagnostic Testing: Clinical Impression(s) from Imaging Studies Lower Extremity CT 06/29/25 13:06 IMPRESSION: Soft tissue swelling. No acute abnormality is seen. Reading Location: [id number] Discharge Plan Triage Chief Complaint: Lower Extremity Injury ED Midlevel Provider: Iris Muller ED Provider: Travis Candelario Dx/Rx/DC Orders Clinical Impression: Right ankle sprain, Deep vein thrombosis (DVT) of right lower extremity, Cellulitis Instructions: Cellulitis Dc, ED Deep Vein Thrombosis (DVT), ED Ankle Sprain (Adult) Prescriptions: New doxycycline hyclate 100 mg tablet 100 mg PO BID Qty: 14 0RF No Action Eliquis DVT-PE Treat 30D Start 5 mg (74 tabs) tablets,dose pack See Rx Instructions .ROUTE .COMPLEX Qty: 74 0RF Rx Instructions: orally per package directions oxycodone-acetaminophen [Endocet] 5-325 mg tablet 1 tab PO Q6H PRN (Reason: pain) 3 Days Qty: 12 0RF amlodipine 5 mg tablet 5 mg PO DAILY Premarin 0.625 mg tablet 0.3125 mg PO DAILY Patient Comments: ON HOLD alosetron 0.5 mg tablet 0.5 mg PO DAILY Nexletol 180 mg tablet 180 mg PO DAILY hydrocodone-acetaminophen 5-325 mg tablet 1 tab PO Q6H PRN PRN (Reason: pain) Primary Care Provider: Toma Quintana Referrals: Toma Quintana DO [Primary Care Provider] - 3-5 Days Activity Restrictions/Additional Instructions: Follow-up with Dr. Ron and return for any other concerns or worsening symptoms. Print Language: Lithuanian Disposition Disposition: Home, Self Care Discharge Date/Time: 06/29/25 15:45
[2025-06-29 12:58] VITALS: BP 141/74; PULSE 77; RESP 18; O2SAT 97
[2025-06-29 12:59] LABS: Hematocrit 40.7 % (37-47); Hemoglobin 13.6 g/dL (12.0-15.0); Immature Granulocytes Count 0.040 X10^3/uL (0.0-0.0); Mean Corp Hgb Conc 33.4 g/dL (32-36); Mean Corpuscular Volume 94.4 fL (81-99); Mean Platelet Vol. 8.7 fl (6.2-12.0); NRBC Flagged by Analyzer 0 % (0-5); Platelet Count 439 K/mm3 (150-450); RBC Distribution Width CV 13.3 % (11.6-14.6); RBC Distribution Width SD 46.8 fl (35.1-43.9); Red Blood Count 4.31 M/mm3 (4.2-5.4); White Blood Count 8.6 K/mm3 (4.4-11.0)
--- NOTE | 2025-06-29 13:06 | CT_ITS ---
PROCEDURE: EXTREMITY LOWER WITHOUT CONTRA 06/29/2025 REASON FOR EXAM: ANKLE PAIN Right foot pain. TECHNIQUE: EXTREMITY LOWER WITHOUT CONTRA Coronal and Sagittal reconstruction series were provided. CONTRAST: None One or more dose reduction techniques were used (e.g., Automated exposure control, adjustment of the mA and/or kV according to patient size, use of iterative reconstruction technique). RADIATION DOSE SUMMARY: CTDlvol: 15.35 mGy DLP: 526.46 mGycm COMPARISON: Prior radiograph of the right foot dated June 25, 2025. FINDINGS: Bones: No fracture is seen. Joints: Degenerative changes of the 1st metatarsophalangeal joint. The ankle mortise is intact. Soft Tissues: Diffuse soft tissue swelling. CT/Extremity Lower without Contra IMPRESSION: Soft tissue swelling. No acute abnormality is seen. Reading Location: [id number]
[2025-06-29 13:38] LABS: Anion Gap 15 (5-15); BUN 17 mg/dL (4-19); BUN/Creat Ratio 21.3 RATIO (10-20); CRP 71.30 mg/L (0.0-3.0); Calcium,Total 10.5 mg/dL (7.6-11.0); Carbon Dioxide 24.5 mmol/L (21.0-32.0); Chloride 100 mmol/L (98-108); Estimated Creatinine Clearance 55.52 ml/min (50-250); Glucose 86 mg/dL (70-99); Potassium 3.9 mmol/L (3.3-5.1)
[2025-06-29 14:00] VITALS: BP 126/63; PULSE 71; O2SAT 100
== END 2025-06-29 15:45 | disposition home or self-care (01) ==
PROVIDERS: Physician Assistant; Emergency Provider Emergency Medicine; PCP Internal Medicine; Visit Provider Emergency Medicine
DX: S93.401A Sprain of unspecified ligament of right ankle, initial encounter (principal); I82.461 Acute embolism and thrombosis of right calf muscular vein; L03.115 Cellulitis of right lower limb; Z87.891 Personal history of nicotine dependence; Z79.01 Long term (current) use of anticoagulants; R79.82 Elevated C-reactive protein (CRP); X58.XXXA Exposure to other specified factors, initial encounter
CPT/HCPCS: 73700; 80048; 85025; 85652; 86140; 96374; 96375; 99282; A4216; J2405

== ENCOUNTER → 2025-10-01 | Outpatient (CLI) | payer MEDICARE, OTHER, SELFPAY ==
[2025-10-01 13:12] LABS: Creatinine, Urine (random) 135.00 mg/dL (28.00-217.00); Microalbumin,Random Urine 17.0 mg/L (<20 mg/L)
[2025-10-01 13:29] LABS: AST(SGOT) 29 U/L (<=31); Alanine Aminotransfer ALT/SGPT 22 U/L (<=34); Albumin, Serum 4.5 g/dL (3.4-4.8); Alkaline Phosphatase 54 U/L (35-104); Anion Gap 10 (5-15); BUN 21 mg/dL (4-19); BUN/Creat Ratio 22.8 RATIO (10-20); Calcium,Total 10.4 mg/dL (7.6-11.0); Carbon Dioxide 27.6 mmol/L (21.0-32.0); Chloride 103 mmol/L (98-108); Ferritin 68 ng/mL (22-378); Globulin 2.1 g/dL (2.2-4.2); Glucose 86 mg/dL (70-99); Iron 81 ug/dL (50-170); Potassium 4.8 mmol/L (3.3-5.1); Vitamin B12 633 pg/mL (180-914)
[2025-10-01 13:58] LABS: FOLATES,SERUM (FOLIC ACID) 24.40 ng/mL (4.60-34.80)
== END | disposition home or self-care (01) ==
LOC: LABSPEC 12:20
PROVIDERS: PCP Internal Medicine; Referring Provider Internal Medicine; Visit Provider Internal Medicine
DX: D75.839 Thrombocytosis, unspecified (principal); R73.09 Other abnormal glucose
CPT/HCPCS: 80053; 82043; 82570; 82607; 82728; 82746; 83540; 85652

== ENCOUNTER → 2025-10-02 | Outpatient (CLI) | payer MEDICARE, OTHER, SELFPAY ==
--- NOTE | 2025-10-02 13:57 | VDLE_ITS ---
Reason For Study Reason For Study: Right leg DVT RIGHT LEFT GSV is normal. CFV is compressible, spontaneous, phasic, competent, CFV is compressible, spontaneous, phasic, competent and demonstrates normal augmentation. and demonstrates normal augmentation. FV is compressible, spontaneous, phasic, competent and demonstrates normal augmentation. POP V is compressible, spontaneous, phasic, competent and demonstrates normal augmentation. T/P Trunk is compressible. PTV is compressible. RT PerV is compressible. Soleus V is compressible. Procedure This is a venous duplex using B-mode, color flow and spectral Doppler. Exam performed in department. Compared to 06/28/2025. A preliminary report was called and/or faxed to Dr. Quintana. VL/Venous Duplex US, Unilateral Interpretation Summary Deep veins of the right lower extremity are patent and compressible segmentally . There is no evidence of right lower extremity deep vein thrombosis. Valvular competence appears intact within the p roximal deep venous system on the right . The right great saphenous vein appears patent and compressible segmentally. Thr ombosis previously noted in the right soleus vein appears to have resolved. The left common femoral vein is patent an d compressible . Ordering Physician: Toma Quintana Referring Physician: Toma Quintana Performed By: Evelyne Schroeder RVT
== END | disposition home or self-care (01) ==
LOC: CVS 13:56
PROVIDERS: PCP Internal Medicine; Referring Provider Internal Medicine; Visit Provider Internal Medicine
DX: M79.671 Pain in right foot (principal); I82.401 Acute embolism and thrombosis of unspecified deep veins of right lower extremity
CPT/HCPCS: 93971

== ENCOUNTER → 2025-10-18 | Outpatient (CLI) | payer MEDICARE, OTHER, SELFPAY ==
--- NOTE | 2025-10-18 11:01 | MRI_ITS ---
PROCEDURE: BREAST BILATERAL W/O AND W 10/18/2025 REASON FOR EXAM: DENSE BREAST TISSUE 75-year-old female with dense breast tissue presents for high risk screening MRI. TECHNIQUE: Procedure Code: [id number] Modality: MR Procedure: BREAST BILATERAL W/O AND W CONTRAST: 11 mL of IV Clariscan COMPARISON: Mammogram 05/07/2025, 04/27/2024 FINDINGS: TISSUE DENSITY: The breasts are heterogeneously dense, which may obscure small masses. Background Parenchymal Enhancement: Mild RIGHT Breast: There is an in circumscribed enhancing mass in the upper-outer right breast at posterior depth with probable thin internal non-enhancing septations measuring 0.7 x 0.6 x 0.5 cm AP by TR by CC (series 9, image 34). There is another similar-appearing circumscribed enhancing mass with probable thin internal non- enhancing septations in the lower slightly outer right breast at middle depth measuring 0.5 x 0.6 cm AP by CC (series 9, image 61). LEFT Breast: No suspicious mass or non-mass enhancement. Other Findings: No suspicious axillary or internal mammary lymph nodes. Visualized portions of the thoracic and abdominal viscera are unremarkable. MRI/Breast Bilateral W/O and W IMPRESSION: Probably benign enhancing masses in the upper-outer and lower-outer right breas t, which may represent fibroadenomas. Recommend short interval six-month follow-up bilateral breast MRI for further evaluation. OVERALL FINAL ASSESSMENT BI-RADS 3: PROBABLY BENIGN. RECOMMENDATION: 6 Month Follow-up Reading Location: [id number]
== END | disposition home or self-care (01) ==
LOC: OPMRI 10:58
PROVIDERS: PCP Internal Medicine; Referring Provider Internal Medicine; Visit Provider Internal Medicine
DX: R92.30 Dense breasts, unspecified (principal); R92.8 Other abnormal and inconclusive findings on diagnostic imaging of breast
CPT/HCPCS: 77049; A9575; A4216; C8908